=== PATIENT | female | born 1965 | race Caucasian/White ===

== ENCOUNTER 2019-11-16 19:14 | Emergency (ER) | payer OTHER, SELFPAY ==
--- NOTE | ~2019-11-16 | XR_ITS ---
EXAMINATION: XR ankle LT min 3V DATE: 11/16/2019 19:45 INDICATION: Left ankle pain TECHNIQUE: Anteroposterior, lateral, mortise, and additional oblique view of the ankle were obtained. COMPARISON: 11/10/2007 FINDINGS: There is no fracture, dislocation, or subluxation. The bones, soft tissues, and joint space s are normal. IMPRESSION: 1. No acute osseous abnormality. Reviewed, dictated and finalized at location A.
[2019-11-16 19:32] VITALS: BP 138/81; PULSE 92; RESP 18; TEMP 37; O2SAT 100
--- NOTE | 2019-11-16 19:51 | ED.LOWEXIN ---
HPI - Extremity Injury (Lower) General Chief Complaint: Extremity Injury, Lower Stated Complaint: Ankle injury Time Seen by Provider: 11/16/19 19:36 Source: patient and RN notes reviewed Mode of arrival: ambulatory Limitations: no limitations History of Present Illness HPI Narrative: Patient presents today complaining of left ankle pain. She was using her left foot to take a hole with a shovel. The foot slipped off the shovel and into a hole around 1430 this afternoon. She complains of lateral and posterior ankle pain. Denies numbness or tingling in the leg or foot. Currently rates her pain 7/10 and describes it as sharp. She has been using ice and Tylenol with mild relief. Pain increases with weightbearing or movement. MD complaint: ankle injury Related Data Allergies Allergy/AdvReac Type Severity Reaction Status Date / Time No Known Allergies Allergy Verified 11/16/19 19:37 Review of Systems Review of Systems: Narrative: CONSTITUTIONAL: Denies body aches, fever, chills, or sweats. EYES: Denies visual changes, redness, or discharge. ENT: Denies rhinorrhea, congestion, sore throat, or otalgia. CARDIOVASCULAR: Denies chest pain, palpitations, or edema. RESPIRATORY: Denies cough or dyspnea. GASTROINTESTINAL: Denies abdominal pain, nausea, vomiting, or diarrhea. GENITOURINARY: Denies dysuria or hematuria. SKIN: Denies rash, itching, or wounds. MUSCULOSKELETAL: Denies back pain,or myalgia. + Left ankle injury NEUROLOGIC: Denies headache, numbness, tingling, or weakness. PSYCH: Denies depression or anxiety. PMFSH Surgical History Surgical History Hx of cataract surgery Hx of cholecystectomy Hx of tonsillectomy Social History Social History Smoking status: Light tobacco smoker Second hand tobacco smoke exposure: No Alcohol intake: never Comments At time of signature, I have reviewed and agree with nursing past medical, surgical, social and family history unless otherwise noted. Please see nursing chart for further information. There is no relevant family history pertinent to the presenting complaint Exam Narrative: Exam Narrative: GENERAL: Well-appearing, well-nourished, and in no acute distress. HEAD: Normocephalic, atraumatic. EYES: EOMI. No redness or drainage. ENT: Mucous membranes pink and moist. NECK: Normal AROM. CHEST: No respiratory distress. EXTREMITIES: Left ankle: No bony tenderness of the lateral or medial malleolus. Mild soft tissue swelling and tenderness to the soft tissue laterally. No tenderness to the Achilles tendon. No tenderness to the foot. No ecchymosis or erythema noted. Distal sensation intact. Capillary refill normal. Pedal pulse normal. Decreased range of motion of the ankle due to pain. SKIN: Warm, dry, no rash. Capillary refill normal. Normal skin turgor. NEURO: No focal deficits. Alert and oriented x3. Gait steady. PSYCH: Normal affect. No signs of depression or anxiety. Course Vital Signs Vital signs: Vital Signs Temperature 98.6 F 11/16/19 19:32 Pulse Rate 92 11/16/19 19:32 Respiratory Rate 18 11/16/19 19:32 Blood Pressure 138/81 11/16/19 19:32 Pulse Oximetry 100 11/16/19 19:32 Temperature 98.6 F 11/16/19 19:32 Pulse Rate 92 11/16/19 19:32 Respiratory Rate 18 11/16/19 19:32 Blood Pressure 138/81 11/16/19 19:32 Pulse Oximetry 100 11/16/19 19:32 Reviewed. Pt has been instructed to follow up with her PCP regarding her elevated blood pressure today. MDM - Extremity Injury (Lower) Differential Diagnosis Differential diagnosis: Likely ankle sprain and strain and ankle fracture Imaging Data Radiologist's impression: ITS Impressions Ankle X-Ray 11/16/19 19:48 IMPRESSION: 1. No acute osseous abnormality. Critical Care Time Critical Care Time Critical Care Time: No Discharge Plan
== END 2019-11-16 20:00 | disposition home or self-care (01) ==
PROVIDERS: Emergency Provider Nurse Practitioner; PCP Family Medicine
DX: S93.402A Sprain of unspecified ligament of left ankle, initial encounter (principal); X58.XXXA Exposure to other specified factors, initial encounter; F17.200 Nicotine dependence, unspecified, uncomplicated
CPT/HCPCS: 73610; 99213; G0463

== ENCOUNTER 2021-01-06 09:08 | Emergency (ER) | payer OTHER, SELFPAY ==
[2021-01-06 09:26] VITALS: BP 129/80; PULSE 65; RESP 20; TEMP 36.4; O2SAT 99
--- NOTE | 2021-01-06 10:05 | ED.URI ---
HPI - URI/Sore Throat General Chief Complaint: Upper Respiratory Infection Stated Complaint: sinus/alergy Source: patient Mode of arrival: ambulatory Limitations: no limitations History of Present Illness HPI Narrative: Patient is a 55-year-old female who presents complaining of sinus pain and pressure. She reports increased pain and pressure over the past 5 days, reports mild symptoms for the past 9 to 10 days. She reports a history of sinus infections. She reports that she sees ENT and has an appointment next week scheduled. She reports she takes Zyrtec and Flonase daily. She reports also taking Sudafed without relief. Patient had negative Covid test on . She denies fever chills or body aches. Patient is vaccinated for Covid. Related Data Allergies Allergy/AdvReac Type Severity Reaction Status Date / Time No Known Allergies Allergy Verified 01/06/21 09:58 Review of Systems Review of Systems: CONSTITUTIONAL: Denies fever, chills, or sweats. EYES: Denies visual changes, redness, or discharge. ENT: Denies rhinorrhea, reports mild congestion and sinus pressure CARDIOVASCULAR: Denies chest pain, palpitations, or edema. RESPIRATORY: Denies cough or dyspnea. GASTROINTESTINAL: Denies abdominal pain, nausea, vomiting, or diarrhea. GENITOURINARY: Denies dysuria or hematuria. SKIN: Denies rash or itching. MUSCULOSKELETAL: Denies back pain, joint pain, or myalgia. NEUROLOGIC: Denies headache, numbness, dizziness, or weakness. PSYCHIATRIC: Denies anxiety or depression. [facility] Past Medical History Medical History (Updated 01/06/21 @ 10:09 by JESSICA Christy) Hypothyroidism Mild intermittent asthma Thyroid nodule Surgical History Surgical History Hx of cataract surgery Hx of cholecystectomy Hx of tonsillectomy Family History Family History Other Cerebrovascular accident Diabetes mellitus Hypertension Social History Social History Smoking status: Light tobacco smoker Second hand tobacco smoke exposure: No Alcohol intake: never Comments At the time of signature, I have reviewed and agree with nursing past medical, surgical, social, and family history unless otherwise noted. Please see nursing chart for further information. There is no relevant family history pertinent to the presenting complaint. Exam Narrative: GENERAL: Well-appearing, well-nourished, and in no acute distress. HEAD: Normocephalic, atraumatic. EYES: EOMI. No redness or drainage. Conjunctiva are normal. ENT: Mucous membranes pink and moist. Nares congested. No rhinorrhea. TMs normal bilaterally. Throat mild erythema. Uvula midline. Frontal sinus tenderness with palpation NECK: AROM. Supple. No lymphadenopathy. CHEST: No respiratory distress. HEART: Regular rate and rhythm. EXTREMITIES: Normal range of motion. No edema. SKIN: Warm, dry, no rash. NEURO: No focal deficits. Alert and oriented x3. Gait steady. PSYCH: Normal affect. No signs of depression or anxiety. Course Vital Signs Vital signs: Vital Signs Temperature 36.4 C L 01/06/21 09:26 Pulse Rate 65 01/06/21 09:26 Respiratory Rate 20 01/06/21 09:26 Blood Pressure 129/80 01/06/21 09:26 Pulse Oximetry 99 01/06/21 09:26 Temperature 36.4 C L 01/06/21 09:26 Pulse Rate 65 01/06/21 09:26 Respiratory Rate 20 01/06/21 09:26 Blood Pressure 129/80 01/06/21 09:26 Pulse Oximetry 99 01/06/21 09:26 Reviewed MDM - URI/Sore Throat MDM Narrative Medical decision making narrative: Patient had Covid PCR with results returned on which were negative. Patient has acute sinusitis. Patient to be treated with antibiotics at this time. Discussed red flags and when to seek further treatment. Patient agrees with plan of care. Patient is stable for discharge to home w
== END 2021-01-06 10:15 | disposition home or self-care (01) ==
PROVIDERS: Emergency Provider Nurse Practitioner; PCP Family Medicine
DX: J01.11 Acute recurrent frontal sinusitis (principal); E03.9 Hypothyroidism, unspecified; J45.909 Unspecified asthma, uncomplicated; F17.200 Nicotine dependence, unspecified, uncomplicated
CPT/HCPCS: 99211; G0463

== ENCOUNTER 2022-03-28 14:22 | Emergency (ER) | payer OTHER, SELFPAY ==
--- NOTE | 2022-03-28 14:27 | ED.URI ---
HPI - URI/Sore Throat General Chief Complaint: Upper Respiratory Infection Stated Complaint: Cough/Chest Congestion Time Seen by Provider: 03/28/22 14:27 Source: patient and RN notes reviewed History of Present Illness HPI Narrative: Patient is a 56-year-old female who presents to urgent care with complaints of cough, congestion and sinus pressure. Patient did a tele visit yesterday with her primary care doctor and was given a Z-Ben and an inhaler. Patient is also been taking Sudafed and using Flonase. States her symptoms started on Friday. Patient had a negative COVID test. Denies any fevers, nausea, vomiting. Patient is requesting codeine cough medication. No other acute complaints. No acute distress noted. Patient aware of the plan care. Some parts of this dictation were generated by voice recognition software and may contain typographical and/or grammatical inaccuracies. Related Data Allergies Allergy/AdvReac Type Severity Reaction Status Date / Time amoxicillin [From Augmentin] AdvReac yeast Verified 03/28/22 14:39 clavulanic acid AdvReac yeast Verified 03/28/22 14:39 [From Augmentin] Review of Systems Review of Systems: CONSTITUTIONAL: Denies fever, chills, or sweats. EYES: Denies visual changes, redness, or discharge. ENT: reports of sinus congestion, head congestion, postnasal drainage CARDIOVASCULAR: Denies chest pain, palpitations, or edema. RESPIRATORY: Reports a productive cough without dyspnea GASTROINTESTINAL: Denies abdominal pain, nausea, vomiting, or diarrhea. GENITOURINARY: Denies dysuria or hematuria. SKIN: Denies rash or itching. MUSCULOSKELETAL: Denies back pain, joint pain, or myalgia. NEUROLOGIC: Denies headache, numbness, or weakness. All other systems reviewed are negative, except as documented in HPI. [facility] Past Medical History Medical History (Updated 03/28/22 @ 14:50 by JESSICA Holman) Hypothyroidism Mild intermittent asthma Thyroid nodule Surgical History Surgical History Hx of cataract surgery Hx of cholecystectomy Hx of tonsillectomy Family History Family History Other Cerebrovascular accident Diabetes mellitus Hypertension Social History Social History Smoking status: Light tobacco smoker Second hand tobacco smoke exposure: No Alcohol intake: never Comments At the time of my signature, I reviewed and agree with the nursing past medical, surgical, social, and family history. There is no relevant family history pertinent to the patient complaint. Exam Narrative: GENERAL: This is a well-nourished, well-developed patient, in no apparent distress. HEAD: normocephalic, atraumatic. EYES: PERRL. Sclera clear/white. Vision is grossly intact. EARS: External ears normal, auditory canals clear and without drainage, TMs normal without perforation. Hearing grossly intact. NOSE: External nose normal with no obvious nasal discharge. mild bilateral erythema nares with clear to yellow rhinorrhea THROAT: Mucous membranes moist, posterior pharynx clear. moderate postnasal drainage NECK: Neck supple CARDIOVASCULAR: Regular rate and rhythm without murmurs, gallops, or rubs. RESPIRATORY: slight crackles throughout with mild expiratory wheezing SKIN: warm, intact with no suspicious lesions or rash, good texture and turgor. NEURO: awake, alert, and oriented to person, place and time. There were no obvious focal neurologic abnormalities. EXTREMITIES: No clubbing, cyanosis, or edema. Course Course Level of Care: Express Care Visit Vital Signs Vital signs: Vital Signs Temperature 98 F 03/28/22 14:35 Pulse Rate 85 03/28/22 14:35 Respiratory Rate 16 03/28/22 14:35 Blood Pressure 126/78 03/28/22 14:35 Pulse Oximetry 98 03/28/22 14:35 Oxygen Delivery Room Air 03/28/22 1
[2022-03-28 14:35] VITALS: BP 126/78; PULSE 85; RESP 16; TEMP 36.6; O2SAT 98
== END 2022-03-28 14:57 | disposition home or self-care (01) ==
PROVIDERS: Emergency Provider Nurse Practitioner Family
DX: J40 Bronchitis, not specified as acute or chronic (principal); E03.9 Hypothyroidism, unspecified; Z72.0 Tobacco use
CPT/HCPCS: 99213; G0463

== ENCOUNTER 2022-08-31 09:55 | Emergency (ER) | payer OTHER, SELFPAY ==
--- NOTE | ~2022-08-31 | XR_ITS ---
EXAMINATION: XR chest 1V portable DATE: 08/31/2022 11:16 INDICATION: Cough. TECHNIQUE: A single frontal view of the chest was obtained. COMPARISON: Chest 2 views 09/04/2018 FINDINGS: The chest demonstrates clear lungs without pneumonia, pleural effusion, or pneumothorax. Th e heart size is normal. There is a prominent right paracardial fat pad. IMPRESSION: 1. No acute cardiopulmonary disease. Reviewed, dictated and finalized at location A.
[2022-08-31 09:58] VITALS: BP 162/88; PULSE 82; RESP 20; TEMP 37.1; O2SAT 97
[2022-08-31 10:07] VITALS: O2SAT 99
[2022-08-31] MEDS: LEVALBUTEROL NEB 1.25 MG/3 ML INHALATION (10:46)
[2022-08-31] MEDS: IPRATROPIUM BR 0.02% INH SOLN 0.5 MG/2.5 ML VIAL INHALATION (10:46)
[2022-08-31 10:49] VITALS: PULSE 67; RESP 22
--- NOTE | 2022-08-31 11:06 | ED.URI ---
HPI - URI/Sore Throat General Chief Complaint: Upper Respiratory Infection Stated Complaint: URI Time Seen by Provider: 08/31/22 10:03 History of Present Illness HPI Narrative: 56-year-old female here for evaluation of upper respiratory infection x4 days. Reports cough, sinus congestion and fullness, low-grade fevers and generalized malaise. was seen at an urgent care and was placed on Bactrim, prednisone, Tessalon Perles and Mucinex. States that these have improved her symptoms but she is perplexed as to why they have not disappeared. Reports difficulty sleeping due to her congestion. She is previously healthy and denies history of respiratory disease. Related Data Allergies Allergy/AdvReac Type Severity Reaction Status Date / Time amoxicillin [From Augmentin] AdvReac yeast Verified 08/31/22 09:55 clavulanic acid AdvReac yeast Verified 08/31/22 09:55 [From Augmentin] doxycycline AdvReac Nausea Verified 08/31/22 09:55 Review of Systems Review of Systems: Gen.: Denies fevers or chills Eyes: Denies eye pain or visual change ENT: Reports congestion Respiratory: Reports productive cough CV: Denies chest pain or palpitations GI: Denies abdominal pain nausea, emesis or diarrhea denies burning, urgency, frequency or hematuria Musculoskeletal: Denies back pain or muscle pain Neuro: Denies numbness, tingling, weakness or focal weakness Skin: Denies rash Except as documented, all other systems reviewed and negative PMFSH Past Medical History Medical History (Updated 08/31/22 @ 12:01 by Aimee Sellers PA-C) Hypothyroidism Mild intermittent asthma Thyroid nodule Surgical History Surgical History Hx of cataract surgery Hx of cholecystectomy Hx of tonsillectomy Family History Family History Other Cerebrovascular accident Diabetes mellitus Hypertension Social History Social History Smoking status: Light tobacco smoker Second hand tobacco smoke exposure: No Alcohol intake: never Exam Narrative: APPEARANCE: Well appearing, no pain in distress, well-nourished. Head: Normocephalic and atraumatic. EYES: PERRLA/EOMI, conjunctivae clear NOSE: No nasal drainage EARS: External ear normal in appearance THROAT: Oropharynx is clear. Mucous membranes are moist. NECK: Supple. No adenopathy, no masses. RESPIRATORY: Transmitted upper airway noises. Airway patent, respirations nonlabored. Clear to auscultation bilaterally, no rales, rhonchi, wheezing. CARDIOVASCULAR: Regular rate and rhythm without murmurs, rubs, or gallops. ABDOMINAL: Normoactive bowel sounds. Soft, nontender, nondistended. No rebound tenderness or guarding. MUSCULOSKELETAL: Extremities are warm and well-perfused. Moves all extremities well. No edema. NEURO: Normal speech. No focal neurologic deficits. SKIN: Skin is warm and dry. No rashes. PSYCHIATRIC: Normal affect/mood. Course Vital Signs Vital signs: Vital Signs Temperature 98.7 F 08/31/22 09:58 Pulse Rate 82 08/31/22 09:58 Respiratory Rate 20 08/31/22 09:58 Blood Pressure 162/88 H 08/31/22 09:58 Pulse Oximetry 97 08/31/22 09:58 Oxygen Delivery Room Air 08/31/22 09:58 Temperature 98.7 F 08/31/22 09:58 Pulse Rate 89 08/31/22 12:03 Respiratory Rate 18 08/31/22 12:03 Blood Pressure 126/67 08/31/22 12:03 Pulse Oximetry 100 08/31/22 12:03 Oxygen Delivery Room Air 08/31/22 10:07 MDM - URI/Sore Throat MDM Narrative Medical decision making narrative: 56-year-old female here for evaluation of upper respiratory infectious symptoms x5 days. Treated with OTC meds, prednisone and Bactrim with improvement of her symptoms but she is upset that they are not gone entirely, most upset that she is unable to sleep at night due to cough. She is nontoxic in
[2022-08-31 11:52] LABS: Influenza A QL RT-PCR Negative (Negative); Influenza B QL RT-PCR Negative (Negative); RSV RNA, RT-PCR Negative (Negative); SARS-CoV-2 RNA PCR Negative (Negative)
[2022-08-31 12:03] VITALS: BP 126/67; PULSE 89; RESP 18; O2SAT 100
== END 2022-08-31 12:19 | disposition home or self-care (01) ==
PROVIDERS: Emergency Provider Physician Assistant; PCP Physician Assistant
DX: J06.9 Acute upper respiratory infection, unspecified (principal); J45.20 Mild intermittent asthma, uncomplicated; E03.9 Hypothyroidism, unspecified; Z20.822 Contact with and (suspected) exposure to COVID-19; F17.210 Nicotine dependence, cigarettes, uncomplicated
CPT/HCPCS: 71045; 87637; 94640; 99283

== ENCOUNTER 2023-11-13 16:02 | Outpatient (CLI) | payer OTHER, SELFPAY ==
--- NOTE | ~2023-11-13 | MR_ITS ---
MRI of the left ankle Clinical history: Pain Technique: Coronal proton-density and proton-density fat-sat images, axial proton-density and proton- density fat-sat images, and sagittal proton-density and proton-density fat-sat images were acquired. Findings: Syndesmotic ligaments are intact. Anterior and posterior talofibular ligaments, and calcane ofibular ligament are intact. Deltoid ligament is intact. Medial flexor tendons, peroneal tendons, anterior extensor tendons, and Achilles tendon are intact. There is no osteochondral lesion of the talar dome. Bone marrow signals and joint spaces are intact. Small tibiotalar joint effusion present. Plantar fascia is intact. Normal signal preserved in the sinus Tarsi. There is diffuse, prominent sub cutaneous soft tissue edema otherwise throughout the ankle region. Impression: Diffuse subcutaneous soft tissue edema, nonspecific. No mass lesion or focal fluid collection evident . No significant osseous or articular abnormality evident. No ligamentous injury evident. Reviewed, dictated and finalized at [facility]. Impression: Diffuse subcutaneous soft tissue edema, nonspecific. No mass lesion or focal fl uid collection evident. No significant osseous or articular abnormality evident. No ligamentous injury evident.
== END 2023-11-13 16:03 ==
LOC: MICIMG 16:03
PROVIDERS: PCP Physician Assistant; Visit Provider Nurse Practitioner Family
DX: M25.572 Pain in left ankle and joints of left foot (principal)
CPT/HCPCS: 73721

== ENCOUNTER 2023-11-14 11:20 | Outpatient (CLI) | payer OTHER, SELFPAY ==
--- NOTE | ~2023-11-14 | US_ITS ---
EXAMINATION: US venous doppler [facility] DATE: 11/14/2023 12:13 INDICATION: Lower limb pain and swelling TECHNIQUE: Grayscale ultrasound images without and with compression and Doppler ultrasound images of the bilateral lower extremity veins were obtained. COMPARISON: None. FINDINGS: The visualized portions of right common femoral vein, profunda (deep) femoral vein, femoral vein, pop liteal vein, posterior tibial veins, peroneal veins and greater saphenous vein outflow are patent. The visualized portions of left common femoral vein, profunda femoral vein, femoral vein, popliteal v ein, posterior tibial veins, peroneal veins and greater saphenous vein outflow are patent. IMPRESSION: 1. No deep venous thrombosis in either lower limb. Reviewed, dictated and finalized at location A.
== END 2023-11-14 11:21 | disposition home or self-care (01) ==
PROVIDERS: PCP Physician Assistant; Visit Provider Nurse Practitioner Family
DX: M79.89 Other specified soft tissue disorders (principal)
CPT/HCPCS: 93970

== ENCOUNTER 2024-11-02 14:37 | Outpatient (CLI) | payer OTHER, SELFPAY ==
--- NOTE | ~2024-11-02 | XR_ITS ---
3 VIEWS PARANASAL SINUSES Ordering provider: Daan Butler APRN History: . J32.9 - Chronic sinusitis, unspecified . Comparison: None. FINDINGS: BONES: No acute fracture as visualized. PARANASAL SINUSES: Well aerated. No air fluid levels. SOFT TISSUES: Normal. IMPRESSION: NO EVIDENCE OF SINUS DISEASE. CONSIDER FOLLOW UP CT PARANASAL SINUSES IF THERE IS CONTINUED CONCERN. Reviewed, dictated and finalized at location A.
--- OUTSIDE RECORDS SUMMARY | 2024-11-02 14:41 | XMS_ITS | Encounter Summary ---
Author Organization [facility] Address [address] [place] [id number] Care Team Providers Care Engineering Leader Name Role Phone Emmy Mcnair Primary Care Provider + [phone] Adrianne Aragon NP Primary Care Provider + [phone] Encounter Details Date Type Department Care Team (Late st Contact Info) Description 12/05/2021 FaceTags Message Enc [facility] Family & Internal Medicine [facility] [id number] [place] [phone] Emmy Mcnair [place] [id number] [place] [id number] [place] Social History Tobacco Use Types Packs/Day Years Used Date Smoking Tobacco: Every Day Cigarettes 0.3 30 Smokeless Tobacco: Never Comments:Mixed feelings Alcohol Use Standard Drinks/Week Comments Yes 0 (1 standard drink = 0.6 oz pur e alcohol) Social occaisons PHQ-2 Answer Date Recorded PHQ-2 Score - If the patient scores above 3, please move on to questions 3-9 0 12/04/2021 Comments No Sex and Gender Information Value Date Recorded Sex Assigned at Not on file Legal Sex Female 8:26 PM CDT Gender Identity Female 06/04/2021 11:08 AM SPEECH THERAPIST EARLY INTERVENTION Sexual Orientation Straight 06/04/2021 11 :08 AM SPEECH THERAPIST EARLY INTERVENTION COVID-19 Exposure Response Date Recorded In the last 10 days, have yo u been in contact with someone who was confirmed or suspected to have Coronavirus/COVID-19? No / Unsure 12/04/2021 7:45 AM CDT documented as of this encounter Plan of Treatment Not on file documented as of this encounter Visit Diagnoses Not on filedocumented in this encounter Additional Health Concerns Assessment Noted Time PHQ-9 Depression Total Score: 0 06/06/19 22 7:57 AM SPEECH THERAPIST EARLY INTERVENTION documented as of this encounter Care Teams Engineering Leader Relationship Specialty [place] [address] [place] [address] PCP - General PHYSICIAN [employer] WORK[employer] 04/26/21 04/17/23 [place] [phone] [address] [id number] [place] [address] PCP - General Nurse Practitioner Family 04/18/2311/26 documented as of this encounter
--- OUTSIDE RECORDS SUMMARY | 2024-11-02 14:41 | XMS_ITS | Clinical Summary ---
Author Organization [facility] Address [address] [place] [address] Care Team Providers Care Window Treatment Installer Name Role Phone Unavailable Primary Care Provider Unavailabl e Allergies Active Allergy Reactions Criticality Noted Date Comments Amoxicillin-Pot Clavulanate Other (see comment) Low 02/14/2019 Pt states it gives her a yeast infection. Medications diclofenac sodium 1 % gel APPLY TO THE AFFECTED AREA THREE TIMES DAILY 1 Active Cyanocobalamin (B-12) 2000 MCG Tab Active Cholecalciferol (VITAMIN D3) 50 MCG (1999 UT) Tab Active famotidine (PEPCID) 20 MG tabletIndications:G astric reflux,H/O hiatal hernia Take 1 tablet (20 mg total) by mouth 2 (two) times daily with meals. 60 tablet 2 3 Active pantoprazole EC (PROTONIX) 40 MG tabletIndications:G astric reflux Take 1 tablet (40 mg total) by mouth every morning. 90 tablet 3 3 Active hydroCHLOROthiazide (MICROZIDE) 12.5 MG capsuleIndications: Primary hypertension Take 1 capsule (12.5 mg total) by mouth daily. 90 capsule 2 3 Active Levothyroxine Sodium (TIROSINT-TJ) 100 MCG/ML SolutionIndications :Acquired hypothyroidism Take 100 mcg by mouth every morning before breakfast. 90 mL 1 4 Active azelastine (ASTELIN) 0.1 % nasal sprayIndications:Se asonal allergies 2 sprays by Nasal route 2 (two) times daily. 30 mL 4 Active ciprofloxacin (CIPRO) 500 MG tablet Take 1 tablet (500 mg total) by mouth 2 (two) times daily. 4 Active azithromycin (ZITHROMAX Z-ANDRIY) 250 MG tabletIndications:B ronchitis Take 2 tablets by mouth on day one then 1 daily for four days. 6 tablet 4 Active benzonatate (TESSALON PERLES) 100 MG capsuleIndications: Bronchitis Take 1 capsule (100 mg total) by mouth 3 (three) times daily as needed. 40 capsule 4 Active Active Problems Problem Noted Date Diagnosed Date Seasonal allergies 07/17/2023 COVID-19 04/25/2023 Gastric reflux 04/23/2023 Hiatal hernia 03/16/2023 Acquired hypothyroidism 12/06/2021 Obesity (BMI 30-39.9) 12/06/2021 Resolved Problems Problem Noted Date Diagnosed Date Resolved Date Abnormal findings on diagnos tic imaging of breast 11/09/2014 07/08/2023 Immunizations Immunization Administration Dates Next Due Fluzone 6 Months+ Quad (0.5 mL Prefilled Syringe) 04/23/2023,02/07/2022,04/26/2021 PFIZER COVID-19 (ORIGINAL FO RMULATION, PURPLE CAP) mRNA, LNP-S, PF, 30 MCG/0.3 ML DOSE 04/26/2021,08/13/2020,07/23/2020 PFIZER COVID-19 BIVALENT (12 +) mRNA, LNP-S, PF, 30 MCG/0.3 ML DOSE 02/07/2022 Family History Medical History Relation Comments Depression Daughter Mental Health Daughter Anxiety/Bipolar Diabetes Father Hypertension Father Diabetes Mother Hypertension Mother Stroke Mother Relation Status Comments Daughter Father Alive Mother Social History Tobacco Use Types Packs/Day Years Used Date Smoking Tobacco: Every Day Cigarettes 0.3 30 Passive Smoke Exposure: Current Smokeless Tobacco: Never Tobacco Cessation:Ready to Q uit: No; Counseling Given: Yes Comments:Mixed feelings Alcohol Use Standard Drinks/Week Comments Yes 0 (1 standard drink = 0.6 oz pur e alcohol) Social occaisons PHQ-2 Answer Date Recorded Patient Health Questionnaire-2 Score 0 07/15/2023 Comments No Sex and Gender Information Value Date Recorded Sex Assigned at Not on file Legal Sex Female 8:26 PM CDT Gender Identity Female 06/04/2021 11:08 AM FOREIGN EXCHANGE DEALER Sexual Orientation Straight 06/04/2021 11 :08 AM FOREIGN EXCHANGE DEALER Last Filed Vital Signs Vital Sign Reading Time Taken Comments Blood Pressure 133/78 07/15/2023 9:10 AM CDT Pulse 77 07/15/2023 9:04 AM CDT Temperature 37.3 C (99.1 F) 07/15/2023 9:04 AM CDT Respiratory Rate 20 07/15/2023 9:04 AM CDT Oxygen Saturation 97% 07/15/2023 9:04 AM CDT Inhaled Oxygen Concentration - - Weight 86.6 kg (191 lb) 07/15/2023 9:04 AM CDT Height 157.5 cm (5' 2) 07/15/2023 9:04 AM CDT Body Mass Index 34.93 07/15/2023 9:04 AM CDT Plan of Treatment Health Maintenance Due Date Last Done Comments DTaP, Tdap and Td Vaccines (1 - Tdap) 10/21/1983 Pneumococcal Vaccine: 50+ Years (1 of 2 - PCV) 10/21/1983 Zoster Vaccines (1 of 2) 2014 Annual Physical 04/26/2022 04/26/2021 COVID-19 Vaccine ( season) 2023 02/07/2022, 04/26/2021, 08/13/2020, Additional history exists Cervical Cancer Screening Pap Smear (Age 30 to 64) Every 3 Years 04/26/2024 04/26/2021 PHQ-2 (Physician [place]) 04/28/2024 07/15/2023 Colorectal Cancer Screening FIT-DNA (3 Years) 05/14/2024 05/14/2021, 05/14/2021 Mammogram Screening 09/13/2024 09/13/2022 Cervical Cancer Screening Pap with HPV Testing (Age 30 to 64) Every 5 Years 04/26/2026 04/26/2021 Cervical Cancer Screening with HPV 04/26/2026 RSV Immunization or 60+ Years (1 - 1-dose 75+ series) 10/21/2039 Hepatitis C Completed 04/23/2023 Meningococcal B Vaccine Aged Out No l onger eligible based on patient's age to complete this topic Meningococcal Vaccine Aged Out No samia lisseth eligible based on patient's age to complete this topic RSV Immunizations Under 20 Months Aged Out No longer eligible based on patient's age to complete this topic Procedures Procedure Name Priority Date/Time Associated Diagnosis Comments HEPATITIS C ANTIBODY W/RFX TO HCV RNA Routine 04/23/2023 11:57 AM FOREIGN EXCHANGE DEALER Encounter for hepatitis C screening test for low risk patient MAMMOGRAM GENERIC (SCAN ORDER) Routine 09/13/2022 COLOGUARD (EXACT SCIENCE) Routine 05/14/2021 9:15 AM FOREIGN EXCHANGE DEALER Colon cancer screening HUMAN PAPILLOMAVIRUS, HIGH-RISK TYPES Routine 04/26/2021 12:30 PM FOREIGN EXCHANGE DEALER CYTOPATH CERV/VAG THIN LAYER Routine 04/26/2021 11:09 AM FOREIGN EXCHANGE DEALER from Last 3 Months or Most Recently Relevant to Health Maintenance Results * HEPATITIS C ANTIBODY ([facility] ONLY) (04/23/2023 11:57 AM FOREIGN EXCHANGE DEALER) HEPATITIS C AB NON-REACT NEELIMA NON-REACT NEELIMA [facility] Comment: HCV antibody was non-reactive. There is no laboratory evidence of HCV infection. In most cases, no further action is required. However, if recent HCV exposure is suspected, a test for HCV RNA (test code 03128) is suggested. For additional information please refer to http://education.Ajaline/faq/DSK35r5 (This link is being provided for informational/ educational purposes only.) 04/23/2023 11:5 7 AM FOREIGN EXCHANGE DEALER 04/24/2023 12:20 PM FOREIGN EXCHANGE DEALER Narrative Resulting Agency Comment Performing Organization Information: Site ID: [id number] Name: [id number] Address: [address] [place] [address] Director: Derrick Bojorquez MD us Adrianne Aragon NP LABORATORY Final Result [facility] [place] [facility] [facility] [address] [place] [address], [place] * MAMMOGRAM (09/13/2022) Anatomical Region Laterality Modality Other us [facility] Scanned SCANNING Final Resu lt * COLOGUARD (EXACT SCIENCE) (05/14/2021 9:15 AM FOREIGN EXCHANGE DEALER) COLOGUARD RESULT Negative Negative [facility] (CLIA #:[id number]) Comment: NEGATIVE TEST RESULT. A negative Cologuard result indicates a low likelihood that a colorectal cancer (CRC) or advanced adenoma (adenomatous polyps with more advanced pre-malignant features) is present. The chance that a person with a negative Cologuard test has a colorectal cancer is less than 1 in 1500 (negative predictive value >99.9%) or has an advanced adenoma is less than 5.3% (negative predictive value 94.7%). These data are based on a prospective cross-sectional study of 10,000 individuals at average risk for colorectal cancer who were screened with both Cologuard and colonoscopy. (Lily Barahona et al, N Engl J Med 2014;370(14):4850-0469) The normal value (reference range) for this assay is negative. COLOGUARD RE-SCREENING RECOMMENDATION: Periodic colorectal cancer screening is an important part of preventive healthcare for asymptomatic individuals at average risk for colorectal cancer. Following a negative Cologuard result, the [place] [employer] Society and U.S. Multi-Society Task Force screening guidelines recommend a Cologuard re-screening interval of 3 years. References: [place] [employer] Guideline for Colorectal Cancer Screening: https://www.cancer.org/cancer/mtnrz-fqrlnz-dolnnh/ugesaneia-xuicrdwoc-abbnywu/ac s-rec ommendations.html.; Dell PEACE, Luis Felipe HOLDER, Mary Kay DavalosK, Colorectal Cancer Screening: Recommendations for Physicians and Patients from the U.S. Multi-Society Task Force on Colorectal Cancer Screening , Am J Gastroenterology 2017; 112:8521-5830. TEST DESCRIPTION: Composite algorithmic analysis of stool DNA-biomarkers with hemoglobin immunoassay. Quantitative values of individual biomarkers are not reportable and are not associated with individual biomarker result reference ranges. Cologuard is intended for colorectal cancer screening of adults of either sex, 45 years or older, who are at average-risk for colorectal cancer (CRC). Cologuard has been approved for use by the U.S. FDA. The performance of Cologuard was established in a cross sectional study of average-risk adults aged 50-84. Cologuard performance in patients ages 45 to 49 years was estimated by sub-group analysis of near-age groups. Colonoscopies performed for a positive result may find as the most clinically significant lesion: colorectal cancer [4.0%], advanced adenoma (including sessile serrated polyps greater than or equal to 1cm diameter) [20%] or non- advanced adenoma [31%]; or no colorectal neoplasia [45%]. These estimates are derived from a prospective cross-sectional screening study of 10,000 individuals at average risk for colorectal cancer who were screened with both Cologuard and colonoscopy. (Lily Barahona et al, N Engl J Med 2014;370(14):4449-0870.) Cologuard may produce a false negative or false positive result (no colorectal cancer or precancerous polyp present at colonoscopy follow up). A negative Cologuard test result does not guarantee the absence of CRC or advanced adenoma (pre-cancer). The current Cologuard screening interval is every 3 years. ([place] [employer] Society and U.S. Multi-Society Task Force). Cologuard performance data in a 10,000 patient pivotal study using colonoscopy as the reference method can be accessed at the following location: www.YesVideo/results. Additional description of the Cologuard test process, warnings and precautions can be found at www.cologuard.com. STOOL STOOL SPECIMEN / Unknown 05/14/2021 9:15 AM FOREIGN EXCHANGE DEALER 05/15/2021 12:21 PM FOREIGN EXCHANGE DEALER us Emmy CHEN BODY FLUIDS AND STOOLS ORDER ALBER Final Result [facility] ([facility]) [address] [place] [address], [place] [employer] (CLIA #:[id number]) [address] [place] [address] * HUMAN PAPILLOMAVIRUS, HIGH-RISK TYPES (04/26/2021 12:30 PM FOREIGN EXCHANGE DEALER) SPEC DESCRIPTION CERVICAL/END OCERVICAL 04/30/2021 12:37 PM FOREIGN EXCHANGE DEALER [facility] HPV DNA HIGH RISK NEGATIVE NEGATIVE 04/30/2021 5:19 PM FOREIGN EXCHANGE DEALER [facility] Comment:SEE CYTOLOGY REPORT 04/26/2021 12:3 0 PM FOREIGN EXCHANGE DEALER us Emmy CHEN PATHOLOGY/CYTOLOGY ORDERABLE S Final Result [facility] [address] [place] [address], * Cytopath Cerv/Vag Thin Layer (04/26/2021 11:09 AM FOREIGN EXCHANGE DEALER) THIN PREP PAP [facility] [address] [place] [address] Department of Pathology Pathology Report CERVICAL/VAGINAL PAP SMEAR REPORT Name: CHERELLE ANTUNEZ Age: 6 1965 (Age: 55) Location: [facility] Sex: F Collected Date: 04/26/2021 [facility] #: [id number] Date Received: 04/30/2021 Date Reported: 05/01/2021 Provider: EMMY CHEN INTERPRETATION CERVICAL/ENDOCERVI JENNIFER: SATISFACTORY FOR EVALUATION. ENDOCERVICAL/TRANS FORMATION ZONE COMPONENT PRESENT. NEGATIVE FOR INTRAEPITHELIAL LESION OR MALIGNANCY. NEGATIVE FOR HIGH RISK HPV. The FDA approved Aptima HPV assay is an in vitro nucleic acid amplification test for the qualitative detection of E6/E7 viral messenger RNA (mRNA) from 14 high-risk types of human papillomavirus (HPV) in cervical specimens. The high-risk HPV types detected by the assay include: 16,18,31,33,35,39, 45,51,52,56,58,59, 66, and 68. Electronically Signed Out By HERMILO Sandhu (ASCP) CLINICAL HISTORY Z12.4 SCREENING CANCER HISTIRY - NO HIGH RISK - NO ThinPrep Pap Test with HR HPV testing in patient > 30 years requested. Date of Last Menstrual Period: YEARS Menstrual Status: Regular SPECIMEN SUBMITTED CERVICAL/ENDOCERVI JENNIFER Specimen Received:1 Thin Prep Vial, Image Assisted Pap (SMD) Please note: The Pap smear is not a diagnostic test. It is a screening test. Negative results on combined screening (Pap test and HPV-DNA) have a high negative predictive value (99.1-100 percent) for cervical cancer. The pap test is not effective in detecting cervical adenocarcinoma. [facility] 04/26/2021 11:0 9 AM FOREIGN EXCHANGE DEALER 04/30/2021 11:09 AM FOREIGN EXCHANGE DEALER Comment:CERVICAL/ENDOCERVICA L us Emmy CHEN PATHOLOGY/CYTOLOGY ORDERABLE S Final Result [facility] [address] [place] [address], from Last 3 Months or Most Recently Relevant to Health Maintenance Insurance [employer]
--- OUTSIDE RECORDS SUMMARY | 2024-11-02 14:41 | XMS_ITS | Encounter Summary ---
Author Organization [facility] Address [address] [place] [address] Care Team Providers Care High School Chemistry Teacher Name Role Phone Adrianne Aragon NP Primary Care Provider [phone] Encounter Details Date Type Department Care Team (Late st Contact Info) Description 04/25/2023 ZAPITANOhart Message Enc [facility] Medical Group Family & Internal Medicine [address] [address] [place] [id number] [place] [address] Local Eye Site [address] [place], [place] [id number] Tsh Social History Tobacco Use Types Packs/Day Years Used Date Smoking Tobacco: Every Day Cigarettes 0.3 30 Smokeless Tobacco: Never Comments:Mixed feelings Alcohol Use Standard Drinks/Week Comments Yes 0 (1 standard drink = 0.6 oz pur e alcohol) Social occaisons PHQ-2 Answer Date Recorded Patient Health Questionnaire-2 Score 0 09/02/2022 Comments No Sex and Gender Information Value Date Recorded Sex Assigned at Not on file Legal Sex Female 8:26 PM CDT Gender Identity Female 06/04/2021 11:08 AM SNUFF GRINDER Sexual Orientation Straight 06/04/2021 11 :08 AM SNUFF GRINDER documented as of this encounter Plan of Treatment Not on file documented as of this encounter Visit Diagnoses Not on filedocumented in this encounter Additional Health Concerns Assessment Noted Time PHQ-9 Depression Total Score: 0 09/03/19 23 9:25 AM CDT documented as of this encounter Care Teams High School Chemistry Teacher Relationship Specialty [place] [address] [facility] Local Eye Site [address] [place] [address] [place] [address] PCP - General Nurse Practitioner Family 04/18/2311/26 documented as of this encounter
--- OUTSIDE RECORDS SUMMARY | 2024-11-02 14:41 | XMS_ITS | Encounter Summary ---
Author Organization [facility] Address [address] [place] [address] Care Team Providers Care Corrections Lieutenant Name Role Phone Emmy Mcnair Primary Care Provider + [phone] Adrianne Aragon NP Primary Care Provider + [phone] Encounter Details Date Type Department Care Team (Late st Contact Info) Description 02/04/2023 PHARMAJET Message Enc [facility] Medical Group Family & Internal Medicine [facility] [id number] [place] [address] [place] [address] [place] [address] Visit Social History Tobacco Use Types Packs/Day Years [...] CDT Gender Identity Female 06/04/2021 11:08 AM OBEDIENCE TRAINER Sexual Orientation Straight 06/04/2021 11 :08 AM OBEDIENCE TRAINER documented as of this encounter Plan of Treatment Not on file documented as of this encounter Visit Diagnoses Not on filedocumented in this encounter Additional Health Concerns Assessment Noted Time PHQ-9 Depression Total Score: 0 09/03/19 23 9:25 AM CDT documented as of this encounter Care Teams Corrections Lieutenant Relationship Specialty [place] [address] [place] [address] PCP - General PHYSICIAN RAIL SPLITTER 04/26/21 04/17/23 [place] [address] [address] [place] [address] PCP - General Nurse Practitioner Family 04/18/2311/26 documented as of this encounter
--- OUTSIDE RECORDS SUMMARY | 2024-11-02 14:41 | XMS_ITS | Encounter Summary ---
Author Organization [facility] Address [address] [place] [address] Care Team Providers Care Artist Color Separation Name Role Phone Emmy Mcnair Primary Care Provider + [phone] Adrianne Aragon NP Primary Care Provider + [phone] Encounter Details Date Type Department Care Team (Late st Contact Info) Description 09/06/2022 Odd Geology Message Enc [facility] Medical Group Family & Internal Medicine [facility] [address] [place] [address] [place] [address] [place] [address] Cough/Meds Social History Tobacco Use Types Packs/Day Years [...] CDT Gender Identity Female 06/04/2021 11:08 AM OFFICE CLERK ASSISTANT Sexual Orientation Straight 06/04/2021 11 :08 AM OFFICE CLERK ASSISTANT COVID-19 Exposure Response Date Recorded In the last 10 days, have yo u been in contact with someone who was confirmed or suspected to have Coronavirus/COVID-19? No / Unsure 09/02/2022 9:12 AM CDT documented as of this encounter Plan of Treatment Not on file documented as of this encounter Visit Diagnoses Not on filedocumented in this encounter Additional Health Concerns Assessment Noted Time PHQ-9 Depression Total Score: 0 09/03/19 9:25 AM CDT documented as of this encounter Care Teams Artist Color Separation Relationship Specialty [place] [address] [place] [address] PCP - General PHYSICIAN 3D ANIMATOR 04/26/21 04/17/23 [place] [address] [address] [address] PCP - General Nurse Practitioner Family 04/18/2311/26 documented as of this encounter
--- OUTSIDE RECORDS SUMMARY | 2024-11-02 14:41 | XMS_ITS | Encounter Summary ---
Author Organization [facility] Address [address] [place] [address] Care Team Providers Care Geophysical Operator Name Role Phone Emmy Mcnair Primary Care Provider + [phone] Adrianne Aragon NP Primary Care Provider + [phone] Encounter Details Date Type Department Care Team (Late st Contact Info) Description 02/22/2022 Wonolo Message [facility] Medical Group Family & Internal Medicine [address] [address] Piyush, [facility] Provider Due for routine follow up appt Social History Tobacco Use Types Packs/Day Years [...] CDT Gender Identity Female 06/04/2021 11:08 AM SHEET METAL OPERATOR Sexual Orientation Straight 06/04/2021 11 :08 AM SHEET METAL OPERATOR COVID-19 Exposure Response Date Recorded In the last 10 days, have yo u been in contact with someone who was confirmed or suspected to have Coronavirus/COVID-19? No / Unsure 02/07/2022 3:34 PM CDT documented as of this encounter Plan of Treatment Not on file documented as of this encounter Visit Diagnoses Not on filedocumented in this encounter Additional Health Concerns Assessment Noted Time PHQ-9 Depression Total Score: 0 06/06/19 22 7:57 AM SHEET METAL OPERATOR documented as of this encounter Care Teams Geophysical Operator Relationship Specialty [place] [address] [place] [address] PCP - General PHYSICIAN 3RD PRESSMAN 04/26/21 04/17/23 [place] [address] [address] [place] [address] PCP - General Nurse Practitioner Family 04/18/2311/26 documented as of this encounter
--- OUTSIDE RECORDS SUMMARY | 2024-11-02 14:41 | XMS_ITS | Clinical Summary ---
Author Organization [facility] [address] [facility] lto Address [address] [place] [address] Care Team Providers Care Warehouse Engineer Name Role Phone Emmy Mcnair Unavailable Emmy Mcnair Primary Care Provider Allergies Active Allergy Reactions Criticality Noted Date Comments Amoxicillin-Pot Clavulanate Other (See comments) Low 02/14/2019 Pt states it gives her a yeast infection. Medications levothyroxine (SYNTHROID) 75 mcg tablet TK 1 T PO QD 2 9 Active hydroCHLOROthiaz puma (MICROZIDE) 12.5 mg capsule TK 1 C PO QD 0 9 Active raNITIdine (ZANTAC) 150 mg tablet TK 1 T PO BID 0 9 Active fluconazole (DIFLUCAN) 150 mg tabletIndication s:Acute recurrent pansinusitis Take 1 tablet (150 mg total) by mouth as directed Take one tab now. Repeat in 7 days if symptoms persist. 2 tablet 9 Active Additional Information Patient not taking.Reported on 04/01/[address] (PROTONIX) 40 mg EC tablet Take 1 tablet (40 mg total) by mouth every morning 1 Active diclofenac sodium (VOLTAREN) 1 % gel APPLY TO THE AFFECTED AREA THREE TIMES DAILY 1 Active cyanocobalamin (Vitamin B-12) 2,000 mcg tablet Take by mouth Active cholecalciferol (VITAMIN D-3) 2000 unit tablet Take by mouth Active albuterol HFA (PROVENTIL HFA,VENTOLIN HFA,PROAIR HFA) 90 mcg/actuation inhaler 3 Active cetirizine 10 mg capsule Take by mouth Active methylPREDNISolo ne (Medrol, Ben,) 4 mg DosepackIndicati ons:Bronchitis follow package directions 1 packet 3 Active Active Problems Problem Noted Date Diagnosed Date Abnormal findings on diagnostic imaging of breas t 11/09/2014 Surgical History Surgery Date Site/Laterality Comments [place] CHOLECYSTECTOMY Cholecystectomy - (Added by TW Conv) CATARACT EXTRACTION Cataract Surgery - (Added by TW Conv) [place] TONSILLECTOMY PRIMARY/SECONDARY <AGE 12 Tonsillectomy - (Added by Conv) BREAST BIOPSY 11/10/2014 Right Medical History Medical History Date Comments 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 Reggie Gibbs (Added by Conv) Family History Medical History Relation Name Comments Diabetes Father Hypertension Father Diabetes Mother Hypertension Mother Relation Name Status Comments Father Mother Social History Tobacco Use Types Packs/Day Years Used Date Smoking Tobacco: Every Day Cigarettes Smokeless Tobacco: Never Tobacco Cessation:Ready to Q uit: Not Asked; Counseling Given: Not Answered Comments No Sex and Gender Information Value Date Recorded Sex Assigned at Not on file Legal Sex Female 2:41 AM THERMOPLASTIC TECHNICIAN Gender Identity Not on file Sexual Orientation Not on file Obstetrics History Para Term AB IAB SAB Ectopic Multiple Livin g Live Births 2 2 2 Date Outcome GA Total Labor Labor/2nd/3rd Weight Sex Type Anes PTL Maria R A1 A5 Name Clin Term Term Last Filed Vital Signs Vital Sign Reading Time Taken Comments Blood Pressure 114/80 08/29/2022 11:19 AM CDT Pulse 102 08/29/2022 11:19 AM CDT Temperature 36.9 C (98.4 F) 08/29/2022 11:19 AM CDT Respiratory Rate 24 08/29/2022 11:19 AM CDT Oxygen Saturation 97% 08/29/2022 11:19 AM CDT Inhaled Oxygen Concentration - - Weight 84.4 kg (186 lb) 08/29/2022 11:19 AM CDT Height 157.5 cm (5' 2) 08/29/2022 11:19 AM CDT Body Mass Index 34.02 08/29/2022 11:19 AM CDT Plan of Treatment Health Maintenance Due Date Last Done Comments Colon Cancer Screening-Colonoscopy 1965 Depression Screening 1965 Hepatitis C Screening 1964 DTaP/Tdap/Td Vaccine (1 - Tdap) 10/21/1975 Hepatitis B Screening 1982 Regular Well Visit/Exam 18-64 1982 Pneumococcal vaccine <65 (1 of 2 - PCV) 10/21/1983 Zoster Vaccine (1 of 2) 2014 Cervical Cancer Screening 04/26/2022 04/26/2021 Covid-19 Vaccine (4 - 2023-2 5 season) 2023 04/26/2021, 08/13/2020, 07/23/2020 Influenza Vaccine (#1) 2024 , 02/07/2022, 04/26/2021 Breast Cancer Screening-Mammogram 01/29/2025 01/30/2024, 09/13/2022, 07/16/2021, Additional history exists Procedures Procedure Name Priority Date/Time Associated Diagnosis Comments SCREENING MAMMOGRAM BILATERAL W KARLO Schedule Routine, Read Routine (OP Routine) 01/30/2024 3:21 PM CDT Screening mammogram, encounter for from Last 3 Months or Most Recently Relevant to Health Maintenance Results * Screening Mammogram Bilateral W Karlo (01/30/2024 3:21 PM CDT) Anatomical Region Laterality Modality Breast Bilateral Mammography Impressions 01/30/2024 3:40 PM CDT BI-RADS ATLAS category (overall): 2 - Benign There is no mammographic evidence of malignancy. A 1 year screening mammogram is recommended. The patient has been or will be contacted. We recommend annual screening mammography for women at average risk of breast cancer beginning at age 40, based on guidelines of the [place] [employer] (ACR Practice Parameter for the Performance of Screening and Diagnostic Mammography) and [place] [employer]. For women with and elevated risk of breast cancer, please refer to the ACR Practice Parameter for specific screening recommendations. The patient will be entered into a reminder system with a target due date of 1 year for her next screening exam. Narrative 01/30/2024 3:40 PM CDT Screening Mammogram Bilateral W Karlo: 01/30/24 The study was acquired using full field digital technology and interpreted from soft copy. 2D digital mammographic views, as well as 3D digital tomosynthesis were performed in the CC and MLO projections. CLINICAL: Screening mammogram, encounter for. No relevant medical history has been documented for this patient. No known family history of breast cancer. COMPARISONS: 09/13/2022 Diagnostic Mammogram Bilateral W Karlo 09/13/2022 US Breast Right Limited 07/16/2021 Diagnostic Mammogram Bilateral W Karlo 07/16/2021 US Breast Right Limited 01/17/2021 Diagnostic Mammogram Right W Karlo 01/17/2021 US Breast Right Limited 07/14/2020 Diagnostic Mammogram Right W Karlo 07/14/2020 US Breast Right Limited 06/29/2020 Screening Mammogram Bilateral W Karlo 03/03/2019 Screening Mammogram Bilateral W Karlo 03/02/2018 Screening Mammogram Bilateral W Karlo BREAST TISSUE: There are scattered areas of fibroglandular density. FINDINGS: There is a post biopsy clip in the right breast.There are benign calcifications in both breasts.No suspicious masses, suspicious calcifications, or other suspicious findings are seen within either breast. There has been no suspicious change. us Self Screening Mammogram IMG MAMMO PROCEDURES Fi nal Result from Last 3 Months or Most Recently Relevant to Health Maintenance Insurance [facility] [id number] [facility] [id number] Care Teams Warehouse Engineer Relationship Specialty [place] [address] [place] [address] PCP - General Physician Facilities Mechanical Design Engineer 09/12/23 [place] [address] [address] [address] Physician Facilities Mechanical Design Engineer Physician Facilities Mechanical Design Engineer 09/13/22
--- OUTSIDE RECORDS SUMMARY | 2024-11-02 14:41 | XMS_ITS | Encounter Summary ---
Author Organization [facility] Address [address] [place] [address] Care Team Providers Care Public Relations Coordinator Name Role Phone Emmy Mcnair Primary Care Provider + [phone] Adrianne Aragon NP Primary Care Provider + [phone] Encounter Details Date Type Department Care Team (Late st Contact Info) Description 12/14/2021 Minboxt Message Enc [facility] Medical Group Family & Internal Medicine [facility] [phone] [place] [phone] [place] [address] [place] [address] Wegovy Social History Tobacco Use Types Packs/Day Years [...] CDT Gender Identity Female 06/04/2021 11:08 AM PROJECT PRODUCT MANAGER Sexual Orientation Straight 06/04/2021 11 :08 AM PROJECT PRODUCT MANAGER COVID-19 Exposure Response Date Recorded In the [...] Total Score: 0 06/06/19 22 7:57 AM PROJECT PRODUCT MANAGER documented as of this encounter Care Teams Public Relations Coordinator Relationship Specialty [place] [address] [place] [address] PCP - General PHYSICIAN PHOTOGRAMMETRIC STEREO COMPILER 04/26/21 04/17/23 [place] [address] [address] [place] [address] [place] [address] PCP - General Nurse Practitioner Family 04/18/2311/26 documented as of this encounter
--- OUTSIDE RECORDS SUMMARY | 2024-11-02 14:41 | XMS_ITS | Encounter Summary ---
Author Organization [facility] Address [address] [place] [address] Care Team Providers Care Mail Order Clerk Name Role Phone Emmy Mcnair Primary Care Provider + [phone] Adrianne Aragon NP Primary Care Provider + [phone] Encounter Details Date Type Department Care Team (Late st Contact Info) Description 06/02/2021 Lifeshare Technologiest Message Enc [facility] Medical Group Family & Internal Medicine [facility] [phone] [place] [phone] Emmy [place], [place] [phone] [place] [address] Keto cream Social History Tobacco Use Types Packs/Day Years Used Date Smoking Tobacco: Every Day Cigarettes Smokeless Tobacco: Never Comments:Mixed feelings Alcohol Use Standard Drinks/Week Comments Yes 0 (1 standard drink = 0.6 oz pur e alcohol) Social PHQ-2 Answer Date Recorded PHQ-2 Score - If the patient scores above 3, please move on to questions 3-9 0 06/06/2021 Comments No Sex and Gender Information Value Date Recorded Sex Assigned at Not on file Legal Sex Female 8:26 PM CDT Gender Identity Female 06/04/2021 11:08 AM WHITE HAT HACKER Sexual Orientation Straight 06/04/2021 11 :08 AM WHITE HAT HACKER COVID-19 Exposure Response Date Recorded In the last 10 days, have yo u been in contact with someone who was confirmed or suspected to have Coronavirus/COVID-19? No / Unsure 06/04/2021 10:43 AM WHITE HAT HACKER documented as of this encounter Plan of Treatment Not on file documented as of this encounter Visit Diagnoses Not on filedocumented in this encounter Additional Health Concerns Assessment Noted Time PHQ-9 Depression Total Score: 0 04/26/20 8:58 AM WHITE HAT HACKER documented as of this encounter Care Teams Mail Order Clerk Relationship Specialty [place] [address] [place] [address] PCP - General PHYSICIAN FINANCIAL AID COUNSELOR 04/26/21 04/17/23 [place] [address] [address] [address] PCP - General Nurse Practitioner Family 04/18/2311/26 documented as of this encounter
--- OUTSIDE RECORDS SUMMARY | 2024-11-02 14:41 | XMS_ITS | Encounter Summary ---
Author Organization [facility] Address [address] [place] [address] Care Team Providers Care Cardiac Exercise Specialist Name Role Phone Emmy Mcnair Primary Care Provider + [phone] Adrianne Aragon NP Primary Care Provider + [phone] Encounter Details Date Type Department Care Team (Late st Contact Info) Description 09/02/2022 Sammy's great American bart Message Enc [facility] Medical Group Family & Internal Medicine [facility] [phone] [place] [phone] [place] [address] [place] [address] One more thing Social History Tobacco Use Types Packs/Day Years [...] CDT Gender Identity Female 06/04/2021 11:08 AM TEST DESK SUPERVISOR Sexual Orientation Straight 06/04/2021 11 :08 AM TEST DESK SUPERVISOR COVID-19 Exposure Response Date Recorded In the last 10 days, have yo u been in contact with someone who was confirmed or suspected to have Coronavirus/COVID-19? No / Unsure 09/02/2022 9:12 AM CDT documented as of this encounter Functional Status * Over the past 2 weeks, how often have you been bothered by any of the following problems? Question Answer Date of Assessment Author Status Little interest or pleasure in doing things Not at all 09/02/2022 9:25 AM Zulema Edwards LPN Act rosa elena Feeling down, depressed, or hopeless Not at all 09/02/2022 9:25 AM Zulema Edwards LPN Active Patient Health Questionnaire-2 Score 0 09/02/2022 9:25 AM Zulema Edwards L PN Active * Question Answer Date of Assessment Author Status Trouble falling or staying asleep, or sleeping too much Not at all 09/02/2022 9:25 AM Zulema Edwards LPN Active Feeling tired or having little energy Not at all 09/02/2022 9:25 AM Zulema Edwards LPN Active Poor appetite or overeating Not at all 09/02/2022 9:25 AM Zulema Edwards LPN Active Feeling bad about yourself - or that you are a failure or have let yourself or your family down Not at all 09/02/2022 9:25 AM Zulema Edwards LPN Active Trouble concentrating on things, such as reading the newspaper or watching television Not at all 09/02/2022 9:25 AM Zulema Edwards LPN Active Moving or speaking so slowly that other people could have noticed? Or the opposite - being so fidgety or restless that you have been moving around a lot more than usual. Not at all 09/02/2022 9:25 AM Zulema Edwrads LPN Active Thoughts that you would be better off or hurting yourself in some way Not at all 09/02/2022 9:25 AM Zulema Edwards LPN Active Patient Health Questionnaire-9 Score 0 09/02/2022 9:25 AM Zulema Edwards LPN Active * Calculated C-SSRS Risk Score (Lifetime/Recent) Answer Date of Assessment Author Status No Risk Indicated 09/02/2022 9:26 AM CDT Omero Menon LPN Active * If you checked off any problems on this questionnaire so far, Question Answer Date of Assessment Author Status How difficult have these problems made it for you to do your work, take care of things at home, or get along with other people? Not difficult at all 09/02/2022 9:25 AM CDZulema Woodward LPN Active * Bibb Suicide Severity Rating Scale (Screener/Recent Self-Report) Question Answer Date of Assessment Author Status 1. Wish to be (Past 1 Month) No 09/02/2022 9:26 AM CDT Zulema Menon LPN Act rosa elena 2. Non-Specific Active Suicidal Thoughts (Past 1 Month) No 09/02/2022 9:26 AM CDZulema Woodward CERTIFIED ORTHOTIST PRACTICE MANAGER Act rosa elena 6. Suicidal Behavior (Lifetime) No 09/02/2022 9:26 AM CDT Zulema Menon LPN Act rosa elena documented as of this encounter Plan of Treatment Not on file documented as of this encounter Visit Diagnoses Not on filedocumented in this encounter Additional Health Concerns Assessment Noted Time PHQ-9 Depression Total Score: 0 09/03/19 9:25 AM CDT documented as of this encounter Care Teams Cardiac Exercise Specialist Relationship Specialty [place] [address] [place] [address] PCP - General PHYSICIAN MARBLE FINISHER 04/26/21 04/17/23 [place] [address] [address] [address] PCP - General Nurse Practitioner Family 04/18/2311/26 documented as of this encounter
--- OUTSIDE RECORDS SUMMARY | 2024-11-02 14:41 | XMS_ITS | Encounter Summary ---
Author Organization [facility] Address [address] [place] [address] Care Team Providers Care Youth Counselor Name Role Phone Emmy Mcnair Primary Care Provider + [phone] Adrianne Aragon NP Primary Care Provider + [phone] Encounter Details Date Type Department Care Team (Late st Contact Info) Description 09/27/2022 JB Therapeuticst Message Enc [facility] Medical Group Family & Internal Medicine [facility] [address] [place] [address] [place] [address] [place] [address] Levothyroxine Social History Tobacco Use Types Packs/Day Years [...] CDT Gender Identity Female 06/04/2021 11:08 AM COOK HELPER VEGETABLE Sexual Orientation Straight 06/04/2021 11 :08 AM COOK HELPER VEGETABLE COVID-19 Exposure Response Date Recorded In the last 10 days, have yo u been in contact with someone who was confirmed or suspected to have Coronavirus/COVID-19? No / Unsure 09/17/2022 12:54 PM CDT documented as of this encounter Plan of Treatment Not on file documented as of this encounter Visit Diagnoses Not on filedocumented in this encounter Additional Health Concerns Assessment Noted Time PHQ-9 Depression Total Score: 0 09/03/19 9:25 AM CDT documented as of this encounter Care Teams Youth Counselor Relationship Specialty [place] [address] [place] [address] PCP - General PHYSICIAN LEAD SHOP OPERATOR 04/26/21 04/17/23 [place] [address] [address] [address] PCP - General Nurse Practitioner Family 04/18/2311/26 documented as of this encounter
--- OUTSIDE RECORDS SUMMARY | 2024-11-02 14:41 | XMS_ITS | Encounter Summary ---
Author Organization [facility] Address [address] [place] [address] Care Team Providers Care Hand Sander Name Role Phone Emmy Mcnair Primary Care Provider + [phone] Adrianne Aragon NP Primary Care Provider + [phone] Encounter Details Date Type Department Care Team (Late st Contact Info) Description 03/28/2022 [place] Message Enc [facility] Medical Group Family & Internal Medicine [facility] [phone] [place] [phone] Emmy Mcnair, APRIL [id number] [place] [address] Wheezing Social History Tobacco Use Types Packs/Day Years [...] CDT Gender Identity Female 06/04/2021 11:08 AM FINANCE CONSULTANT Sexual Orientation Straight 06/04/2021 11 :08 AM FINANCE CONSULTANT documented as of this encounter Plan of Treatment Not on file documented as of this encounter Visit Diagnoses Not on filedocumented in this encounter Additional Health Concerns Assessment Noted Time PHQ-9 Depression Total Score: 0 06/06/19 22 7:57 AM FINANCE CONSULTANT documented as of this encounter Care Teams Hand Sander Relationship Specialty [place] [address] [place] [address] PCP - General PHYSICIAN CULINARY INTERN 04/26/21 04/17/23 [place] [address] [address] [address] PCP - General Nurse Practitioner Family 04/18/2311/26 documented as of this encounter
--- OUTSIDE RECORDS SUMMARY | 2024-11-02 14:41 | XMS_ITS | Encounter Summary ---
Author Organization [facility] Address [address] [place] [address] Care Team Providers Care Application Development Director Name Role Phone Emmy Mcnair Primary Care Provider + [phone] Adrianne Aragon NP Primary Care Provider + [phone] Encounter Details Date Type Department Care Team (Late st Contact Info) Description 09/17/2022 Superpedestriant Message Enc [facility] Medical Group Family & Internal Medicine [facility] [phone] [place] [phone] [place] [address] [place] [address] Rib Social History Tobacco Use Types Packs/Day Years [...] CDT Gender Identity Female 06/04/2021 11:08 AM INTENSIVE CARE UNIT NURSE Sexual Orientation Straight 06/04/2021 11 :08 AM INTENSIVE CARE UNIT NURSE COVID-19 Exposure Response Date Recorded In the [...] documented as of this encounter Care Teams Application Development Director Relationship Specialty [place] [address] [place] [address] PCP - General PHYSICIAN CHALKER SOLES 04/26/21 04/17/23 [place] [address] [address] [address] PCP - General Nurse Practitioner Family 04/18/2311/26 documented as of this encounter
--- OUTSIDE RECORDS SUMMARY | 2024-11-02 14:41 | XMS_ITS | Referral Summary ---
Author Organization [facility] [address] [facility] lto Address [address] [place] [address] Care Team Providers Care Tree Fruit And Nut Crops Farmer Name Role Phone Emmy Mcnair Unavailable Emmy [...] Date Abnormal findings on diagnostic imaging of agustina t 11/09/2014 Social History Tobacco Use Types Packs/Day Years Used Date Smoking Tobacco: Every Day Cigarettes Smokeless Tobacco: Never Tobacco Cessation:Ready to Q uit: Not Asked; Counseling Given: Not Answered Comments No Sex and Gender Information Value Date Recorded Sex Assigned at Not on file Legal Sex Female 2:41 AM DRILLER PORTABLE Gender Identity Not on file Sexual Orientation Not on file Last Filed Vital Signs Vital Sign Reading [...] 08/29/2022 11:19 AM CDT Plan of Treatment Not on file Procedures Procedure Name Priority Date/Time Associated Diagnosis [...] age 40, based on guidelines of the [place] [employer] (ACR Practice Parameter for the Performance of Screening and Diagnostic Mammography) and [place] [employer]. For women [...] Most Recently Relevant to Health Maintenance Insurance [facility] [id number] [facility] [id number] Care Teams Tree Fruit And Nut Crops Farmer Relationship Specialty [place] [address] [place] [address] PCP - General Physician Cad Designer 09/12/23 [place] [address] [address] Physician Cad Designer Physician Cad Designer 09/13/22
--- OUTSIDE RECORDS SUMMARY | 2024-11-02 14:41 | XMS_ITS | Encounter Summary ---
Author Organization [facility] Address [address] [place] [address] Care Team Providers Care Nutrition Counselor Name Role Phone Adrianne Aragon NP Primary Care Provider [phone] Encounter Details Date Type Department Care Team (Late st Contact Info) Description 07/16/2023 Fast PCR Diagnosticshart Message Enc [facility] Medical Group Family & Internal Medicine [facility] [phone] [place] [phone] [place] Mcnair [place] [phone] [place] [id number] [employer] Social History Tobacco Use Types Packs/Day Years Used Date Smoking Tobacco: Every Day Cigarettes 0.3 30 Passive Smoke Exposure: Current Smokeless Tobacco: Never Comments:Mixed feelings Alcohol Use Standard Drinks/Week Comments Yes 0 (1 standard drink = 0.6 oz pur e alcohol) Social occaisons PHQ-2 Answer Date Recorded Patient Health Questionnaire-2 Score 0 07/15/2023 Comments No Sex and Gender Information Value Date Recorded Sex Assigned at Not on file Legal Sex Female 8:26 PM CDT Gender Identity Female 06/04/2021 11:08 AM BACKUP ADMINISTRATOR Sexual Orientation Straight 06/04/2021 11 :08 AM BACKUP ADMINISTRATOR documented as of this encounter Plan of Treatment Not on file documented as of this encounter Visit Diagnoses Not on filedocumented in this encounter Additional Health Concerns Assessment Noted Time PHQ-9 Depression Total Score: 0 09/03/19 23 9:25 AM CDT documented as of this encounter Care Teams Nutrition Counselor Relationship Specialty [place] [address] [facility] [address] [address] PCP - General Nurse Practitioner Family 04/18/2311/26 documented as of this encounter
--- OUTSIDE RECORDS SUMMARY | 2024-11-02 14:41 | XMS_ITS | Encounter Summary ---
Author Organization [facility] Address [address] [place] [address] Care Team Providers Care Dynamometer Mechanic Name Role Phone Emmy Mcnair Primary Care Provider + [phone] Adrianne Aragon NP Primary Care Provider + [phone] Encounter Details Date Type Department Care Team (Late st Contact Info) Description 05/20/2022 [employer] Message Enc [facility] Medical Group Family & Internal Medicine [facility] [address] [place] [address] Emmy Mcnair, APRIL [id number] [place] [address] UTI Social History Tobacco Use Types Packs/Day Years [...] CDT Gender Identity Female 06/04/2021 11:08 AM SUPERVISOR PAYROLL Sexual Orientation Straight 06/04/2021 11 :08 AM SUPERVISOR PAYROLL documented as of this encounter Plan of Treatment Not on file documented as of this encounter Visit Diagnoses Not on filedocumented in this encounter Additional Health Concerns Assessment Noted Time PHQ-9 Depression Total Score: 0 06/06/19 22 7:57 AM SUPERVISOR PAYROLL documented as of this encounter Care Teams Dynamometer Mechanic Relationship Specialty [place] [address] [place] [address] PCP - General PHYSICIAN SAP BASIS ADMINISTRATOR 04/26/21 04/17/23 [place] [address] [address] [place] [address] PCP - General Nurse Practitioner Family 04/18/2311/26 documented as of this encounter
--- OUTSIDE RECORDS SUMMARY | 2024-11-02 14:41 | XMS_ITS | Encounter Summary ---
Author Organization [facility] Address [address] [facility] [place] [address] Care Team Providers Care Lithopone Mill Worker Name Role Phone Soha Henry MD Primary Care Provider [phone] Encounter Details Date Type Department Care Team (Late st Contact Info) Description 09/28/2024 Lab Requisition [facility] - DermPath Lab [address] [place] [address] Aguilar Collazo MD [facility] DERMATOLOGY [address] [place] [phone] Neoplasm of uncertain behavior of skin Social History Tobacco Use Types Packs/Day Years Used Date Smoking Tobacco: Every Day Cigarettes Alcohol Use Standard Drinks/Week Comments Yes 0 (1 standard drink = 0.6 oz pur e alcohol) Comments Unknown Sex and Gender Information Value Date Recorded Sex Assigned at Not on file Legal Sex Female 7:00 PM YARN TWISTER Gender Identity Not on file Sexual Orientation Not on file documented as of this encounter Plan of Treatment Not on file documented as of this encounter Procedures Procedure Name Priority Date/Time Associated Diagnosis Comments DERMATOPATHOLOGY Routine 09/27/2024 12:0 0 AM CDT Neoplasm of uncertain behavior of skin documented in this encounter Results * DERMATOPATHOLOGY (09/27/2024 12:00 AM CDT) Case Report Dermatopathology Report Case: [id number] Authorizing Provider: Aguilar Collazo MD Collected: 09/27/2024 12:00 AM Ordering Location: [facility] - Received: 09/29/2024 02:01 PM DermPath Lab Pathologist: Taniya Manzano MD Specimen: Skin, mid forehead 3:18 PM CDT DERMATOPATHOLOGY LABORATORY Final Diagnosis Specimen A. SKIN, mid forehead: HYPERKERATOSIS, ACANTHOSIS, AND TELANGIECTASES, SUPERFICIAL PORTIONS OF (I78.1) (see microscopic description and comment) 3:18 PM [facility] DERMATOPATHOLOGY LABORATORY at 1518 CDT Clinical History BCC vs Cyst 3:18 PM [facility] DERMATOPATHOLOGY LABORATORY Gross Description Specimen A: Received is one formalin filled container labeled with the patient's name and designated mid forehead. The specimen consists of a shave biopsy measuring 8x6x1 mm. Jar 0. 3:18 PM [facility] DERMATOPATHOLOGY LABORATORY Microscopic Description Specimen A. SKIN, mid forehead: Epidermis and superficial portions of papillary dermis are present for evaluation. There is hyperkeratosis and acanthosis. Within the dermis there are dilated thin-walled vessels lined by a single layer of endothelium. There is focal dermal fibrosis. The hematoxylin and eosin stain is reviewed; immunohistochemical stains are performed to further assess the histologic features. ERG highlights ectatic dermal vessels, that do not reveal a sigificantly increased proliferative index with CD31/Ki67 dual immunostain. D2-40 is positive in scattered ectatic vessels. SMA is positive in pericytes. HHV8 is negative. Additional deeper sections were obtained and reviewed. COMMENT: The histologic differential diagnosis includes a traumatized benign verrucous keratosis; and a lymphangioma. An angiofibroma was also considered; however, given the superficial nature of the biopsy specimen, a deeper dermal process cannot be excluded. 3:18 PM [facility] DERMATOPATHOLOGY LABORATORY Disclaimer An external and internal positive and negative controls are appropriate for the histochemical, immunohistochemical and immunofluorescence stain(s) in this case (if any), except where stated explicitly. The performance characteristics of the stain(s) cited in this report were developed and its performance characteristic determined by the Dermatopathology Laboratory at [facility], directed by Dr. Connor Pickard. These tests need not be, and therefore are not, approved by the [place] Food and Drug Administration. The tests are used for clinical purposes. Billing Codes Specimen Charges Stain Charges 06923 1 22409 52254 [id number] [id number] 92704 1 1 1 1 1 06/10/202 5 3:18 PM CDT DERMATOPATHOLOGY LABORATORY Embedded Images 3:18 PM CDT DERMATOPATHOLOGY LABORATORY Pathology/Cytolog y TISSUE SPECIMEN FROM SKIN / Unknown 09/27/2024 09/29/2024 2:01 PM CDT us Aguilar Collazo MD LAB - PATHOLOGY/CYTOLOGY ADAME COLLEEN Final Result DERMATOPATHOLOGY LABORATORY [facility] - Department of Dermatology [facility] Medicine [address] [place] [address], [address] [phone] documented in this encounter Visit Diagnoses Diagnosis Neoplasm of uncertain behavior of skin documented in this encounter Care Teams Lithopone Mill Worker Relationship Specialty Start Date End Date Soha Henry MD [address] [place] [address] PCP - General 03/15/11 documented as of this encounter
--- OUTSIDE RECORDS SUMMARY | 2024-11-02 14:41 | XMS_ITS | Encounter Summary ---
Author Organization [facility] Address [address] [place] [address] Care Team Providers Care Presentation Specialist Name Role Phone Emmy Mcnair Primary Care Provider + [phone] Adrianne Aragon NP Primary Care Provider + [phone] Encounter Details Date Type Department Care Team (Late st Contact Info) Description 07/18/2021 Log[employer] Message Enc [facility] Medical Group Family & Internal Medicine [facility] [address] [place] [address] [place] Mc[place]air [place] [phone] [place] [address] Lab orders; yeast rash Social History Tobacco Use Types Packs/Day Years [...] CDT Gender Identity Female 06/04/2021 11:08 AM PLATFORM ARCHITECT Sexual Orientation Straight 06/04/2021 11 :08 AM PLATFORM ARCHITECT documented as of this encounter Plan of Treatment Not on file documented as of this encounter Visit Diagnoses Not on filedocumented in this encounter Additional Health Concerns Assessment Noted Time PHQ-9 Depression Total Score: 0 06/06/19 22 7:57 AM PLATFORM ARCHITECT documented as of this encounter Care Teams Presentation Specialist Relationship Specialty [place] [address] [place] [address] PCP - General PHYSICIAN FILM PAINTER 04/26/21 04/17/23 [place] [address] [address] [place] [address] PCP - General Nurse Practitioner Family 04/18/2311/26 documented as of this encounter
--- OUTSIDE RECORDS SUMMARY | 2024-11-02 14:41 | XMS_ITS | Encounter Summary ---
Author Organization [facility] Address [address] [place] [address] Care Team Providers Care Manager Product Support Name Role Phone Emmy Mcnair Primary Care Provider + [phone] Adrianne Aragon NP Primary Care Provider + [phone] Encounter Details Date Type Department Care Team (Late st Contact Info) Description 09/18/2022 [employer] Message Enc [facility] Medical Group Family & Internal Medicine [facility] [address] [place] [address] [place] [address] [place] [address] Lung xray Social History Tobacco Use Types Packs/Day Years [...] CDT Gender Identity Female 06/04/2021 11:08 AM MANAGER PHARMACY Sexual Orientation Straight 06/04/2021 11 :08 AM MANAGER PHARMACY COVID-19 Exposure Response Date Recorded In the last 10 days, have yo u been in contact with someone who was confirmed or suspected to have Coronavirus/COVID-19? No / Unsure 09/17/2022 12:54 PM CDT documented as of this encounter Progress Notes * Malia Velásquez MA - 09/18/2022 12:16 PM CDT Ok for script? documented in this encounter Plan of Treatment Not on file documented as of this encounter Visit Diagnoses Diagnosis Obesity (BMI 30.0-34.9)- Primary Obesity, unspecified documented in this encounter Additional Health Concerns Assessment Noted Time PHQ-9 Depression Total Score: 0 09/03/19 9:25 AM CDT documented as of this encounter Care Teams Manager Product Support Relationship Specialty [place] [address] [place] [address] PCP - General PHYSICIAN AUTOMATIC LEHR OPERATOR 04/26/21 04/17/23 [place] [address] [address] [address] PCP - General Nurse Practitioner Family 04/18/2311/26 documented as of this encounter
--- OUTSIDE RECORDS SUMMARY | 2024-11-02 14:41 | XMS_ITS | Encounter Summary ---
Author Organization [facility] Address [address] [place] [address] Care Team Providers Care Beater Worker Helper Name Role Phone Emmy Mcnair Primary Care Provider + [phone] Adrianne Aragon NP Primary Care Provider + [phone] Encounter Details Date Type Department Care Team (Late st Contact Info) Description 06/01/2021 Sheology Message [facility] Medical Group Family & Internal Medicine [address] [address] [facility] Provider medication use Social History Tobacco Use Types Packs/Day Years Used Date Smoking Tobacco: Every Day Cigarettes Smokeless Tobacco: Never Comments:Mixed feelings Alcohol Use Standard Drinks/Week Comments Yes 0 (1 standard drink = 0.6 oz pur e alcohol) Social PHQ-2 Answer Date Recorded PHQ-2 Score - If the patient scores above 3, please move on to questions 3-9 0 04/26/2021 Comments No Sex and Gender Information Value Date Recorded Sex Assigned at Not on file Legal Sex Female 8:26 PM CDT Gender Identity Female 06/04/2021 11:08 AM PAPER MACHINE OPERATOR Sexual Orientation Straight 06/04/2021 11 :08 AM PAPER MACHINE OPERATOR COVID-19 Exposure Response Date Recorded In the last 10 days, have yo u been in contact with someone who was confirmed or suspected to have Coronavirus/COVID-19? No / Unsure 06/04/2021 10:43 AM PAPER MACHINE OPERATOR documented as of this encounter Plan of Treatment Not on file documented as of this encounter Visit Diagnoses Not on filedocumented in this encounter Additional Health Concerns Assessment Noted Time PHQ-9 Depression Total Score: 0 04/26/20 21 8:58 AM PAPER MACHINE OPERATOR documented as of this encounter Care Teams Beater Worker Helper Relationship Specialty [place] [address] [place] [address] PCP - General PHYSICIAN ENGINE BUILDUP MECHANIC 04/26/21 04/17/23 [place] [address] [address] [place] [address] PCP - General Nurse Practitioner Family 04/18/2311/26 documented as of this encounter
--- OUTSIDE RECORDS SUMMARY | 2024-11-02 14:41 | XMS_ITS | Encounter Summary ---
Author Organization [facility] Address [address] [place] [address] Care Team Providers Care Hearing Specialist Name Role Phone Emmy Mcnair Primary Care Provider + [phone] Adrianne Aragon NP Primary Care Provider + [phone] Encounter Details Date Type Department Care Team (Late st Contact Info) Description 09/17/2022 [employer] Message Enc [facility] Medical Group Family & Internal Medicine [facility] [address] [place] [address] [place] [address] [place] [address] [email or web address] Social History Tobacco Use Types Packs/Day Years [...] CDT Gender Identity Female 06/04/2021 11:08 AM CROP FARM WORKERS Sexual Orientation Straight 06/04/2021 11 :08 AM CROP FARM WORKERS COVID-19 Exposure Response Date Recorded In the [...] documented as of this encounter Care Teams Hearing Specialist Relationship Specialty [place] [address] [place] [address] PCP - General PHYSICIAN INTERN 04/26/21 04/17/23 [place] [address] [address] [place] [address] PCP - General Nurse Practitioner Family 04/18/2311/26 documented as of this encounter
--- OUTSIDE RECORDS SUMMARY | 2024-11-02 14:41 | XMS_ITS | Encounter Summary ---
Author Organization [facility] Address [address] [place] [address] Care Team Providers Care Propagator Laborer Name Role Phone Emmy Mcnair Primary Care Provider + [phone] Adrianne Aragon NP Primary Care Provider + [phone] Encounter Details Date Type Department Care Team (Late st Contact Info) Description 09/25/2022 [employer] Message Enc [facility] Medical Group Family & Internal Medicine [facility] [phone] [place] [address] [place] [address] [place] [address] Huma Social History Tobacco Use Types Packs/Day Years [...] CDT Gender Identity Female 06/04/2021 11:08 AM TRACK LEADER Sexual Orientation Straight 06/04/2021 11 :08 AM TRACK LEADER COVID-19 Exposure Response Date Recorded In the [...] documented as of this encounter Care Teams Propagator Laborer Relationship Specialty [place] [address] [place] [address] PCP - General PHYSICIAN CROP RANCH HAND 04/26/21 04/17/23 [place] [address] [address] [address] PCP - General Nurse Practitioner Family 04/18/2311/26 documented as of this encounter
--- OUTSIDE RECORDS SUMMARY | 2024-11-02 14:41 | XMS_ITS | Encounter Summary ---
Author Organization [facility] Address [address] [place] [address] Care Team Providers Care Machine Filler Name Role Phone Emmy Mcnair Primary Care Provider + [phone] Adrianne Aragon NP Primary Care Provider + [phone] Encounter Details Date Type Department Care Team (Late st Contact Info) Description 02/28/2022 E[employer] Message Enc [facility] Medical Group Family & Internal Medicine [facility] [address] [place] [address] [place] [address] [place] [address] Prescription Social History Tobacco Use Types Packs/Day Years [...] CDT Gender Identity Female 06/04/2021 11:08 AM IRON PILER Sexual Orientation Straight 06/04/2021 11 :08 AM IRON PILER COVID-19 Exposure Response Date Recorded In the [...] Total Score: 0 06/06/19 22 7:57 AM IRON PILER documented as of this encounter Care Teams Machine Filler Relationship Specialty [place] [address] [place] [address] PCP - General PHYSICIAN CLUBHOUSE ATTENDANT 04/26/21 04/17/23 [place] [address] [address] [facility] [address] [place] [address] PCP - General Nurse Practitioner Family 04/18/2311/26 documented as of this encounter
--- OUTSIDE RECORDS SUMMARY | 2024-11-02 14:41 | XMS_ITS | Encounter Summary ---
Author Organization [facility] Address [address] [place] [address] Care Team Providers Care Ground Wood Supervisor Name Role Phone Emmy Mcnair Primary Care Provider + [phone] Adrianne Aragon NP Primary Care Provider + [phone] Encounter Details Date Type Department Care Team (Late st Contact Info) Description 05/06/2022 [employer] Message Enc [facility] Medical Group Family & Internal Medicine [facility] [address] [place] [address] [place] Mcnair [place] [phone] [place] [address] [place] Social History Tobacco Use Types Packs/Day Years [...] CDT Gender Identity Female 06/04/2021 11:08 AM SUGAR MIXER Sexual Orientation Straight 06/04/2021 11 :08 AM SUGAR MIXER documented as of this encounter Progress Notes * APRIL Diana - 05/06/2022 8:57 AM CSTFrom: Stella Antunez To: Emmy Mcnair Sent: 05/06/2022 6:30 AM SUGAR MIXER Subject: Wegovy I was so excited to finally receive wegovy. I took my first injection friday morning. Since I have been so sick I cant function. The nausea is so bad. Other symptoms freezing cold and extreme fatigue. If I dont move I do ok. Trying to get ready, cook or just go to work or the store I cant do. Toomuch moving around. I dont thi nk this is going to work for me. Woukd a nausea medication help so Ican get back to work? How long will this extreme nausea last. R MIXER documented in this encounter Plan of Treatment Not on file documented as of this encounter Visit Diagnoses Diagnosis Nausea- Primary Nausea alone documented in this encounter Additional Health Concerns Assessment Noted Time PHQ-9 Depression Total Score: 0 06/06/19 7:57 AM SUGAR MIXER documented as of this encounter Care Teams Ground Wood Supervisor Relationship Specialty [place] [address] [place] [address] PCP - General PHYSICIAN MIXER RUNNER 04/26/21 04/17/23 [place] [address] [address] [facility] [address]. [place] [address] PCP - General Nurse Practitioner Family 04/18/2311/26 documented as of this encounter
--- OUTSIDE RECORDS SUMMARY | 2024-11-02 14:41 | XMS_ITS | Encounter Summary ---
Author Organization [facility] Address [address] [place] [address] Care Team Providers Care Hand Router Operator Name Role Phone Emmy Mcnair Primary Care Provider + [phone] Adrianne Aragon NP Primary Care Provider + [phone] Encounter Details Date Type Department Care Team (Late st Contact Info) Description 09/02/2022 A [employer] A Custom [employer] Message Enc [facility] Medical Group Family & Internal Medicine [facility] [address] [place] [address] Emmy Mcnair, APRIL [address] [place] [address] Help Social History Tobacco Use Types Packs/Day Years [...] CDT Gender Identity Female 06/04/2021 11:08 AM SWING FRAME GRINDER OPERATOR Sexual Orientation Straight 06/04/2021 11 :08 AM SWING FRAME GRINDER OPERATOR COVID-19 Exposure Response Date Recorded In [...] 09/02/2022 9:25 AM Zulema Edwards LPN Active Thoughts that you would be [...] Not difficult at all 09/02/2022 9:25 AM CDT Zulema Menon LPN Active * [place] Suicide Severity Rating Scale (Screener/Recent Self-Report) Question Answer Date of Assessment Author Status 1. Wish to be (Past 1 Month) No 09/02/2022 9:26 AM CDT Zulema Menon CIGAR TOBACCO REHANDLER Act rosa elena 2. Non-Specific Active Suicidal Thoughts (Past 1 Month) No 09/02/2022 9:26 AM CDT Zulema Menon CIGAR TOBACCO REHANDLER Act rosa elena 6. Suicidal Behavior (Lifetime) [...] as of this encounter Care Teams Hand Router Operator Relationship Specialty [place] [address] [place] [address] PCP - General PHYSICIAN CELERY CUTTER 04/26/21 04/17/23 [place] [address] [address] [place] [address] PCP - General Nurse Practitioner Family 04/18/2311/26 documented as of this encounter
--- OUTSIDE RECORDS SUMMARY | 2024-11-02 14:41 | XMS_ITS | Encounter Summary ---
Author Organization [facility] Address [address] [place] [address] Care Team Providers Care Fatback Trimmer Name Role Phone Emmy Mcnair Primary Care Provider + [phone] Adrianne Aragon NP Primary Care Provider + [phone] Encounter Details Date Type Department Care Team (Late st Contact Info) Description 02/13/2023 [employer] Message Enc [facility] Medical Group Family & Internal Medicine [facility] [address] [place] [address] [place] [address] [place] [address] Rene Stanton Social History Tobacco Use Types Packs/Day Years Used Date Smoking Tobacco: Every Day Cigarettes 0.3 30 Smokeless Tobacco: Never Comments:Mixed feelings Alcohol Use Standard Drinks/Week Comments Yes 0 (1 standard drink = 0.6 oz pur e alcohol) Social lefty PHQ-2 Answer Date Recorded Patient Health Questionnaire-2 Score 0 09/02/2022 Comments No Sex and Gender Information Value Date Recorded Sex Assigned at Not on file Legal Sex Female 8:26 PM CDT Gender Identity Female 06/04/2021 11:08 AM ACTUARIAL CONSULTANT Sexual Orientation Straight 06/04/2021 11 :08 AM ACTUARIAL CONSULTANT documented as of this encounter Plan of Treatment Not on file documented as of this encounter Visit Diagnoses Not on filedocumented in this encounter Additional Health Concerns Assessment Noted Time PHQ-9 Depression Total Score: 0 09/03/19 23 9:25 AM CDT documented as of this encounter Care Teams Fatback Trimmer Relationship Specialty [place] [address] [place] [address] PCP - General PHYSICIAN MILLINERY SALESPERSON 04/26/21 04/17/23 [place] [address] [address] [place] [address] PCP - General Nurse Practitioner Family 04/18/2311/26 documented as of this encounter
--- OUTSIDE RECORDS SUMMARY | 2024-11-02 14:41 | XMS_ITS | Encounter Summary ---
Author Organization [facility] Address [address] [place] [address] Care Team Providers Care Regional Engagement Consultant Name Role Phone Adrianne Aragon NP Primary Care Provider [phone] Encounter Details Date Type Department Care Team (Late st Contact Info) Description 07/16/2023 MyChart Message Enc [facility] Medical Group Family & Internal Medicine [address] [address] Adrianne Aragon [place] [address] [place] [address] [place] [id number] Ciproflaxin Social History Tobacco Use Types Packs/Day Years [...] CDT Gender Identity Female 06/04/2021 11:08 AM COIL FINISHER Sexual Orientation Straight 06/04/2021 11 :08 AM COIL FINISHER documented as of this encounter Progress Notes * Raegan Crenshaw RN - 07/16/2023 4:26 PM CDT Images from the original note were not included. APRIL Diana to Stella Vargas 07/16/23 1:38 PM Hard to say which med is causing the hives but more likely the cipro. If you are itching you can use benadryl. I would wait a day to start the Zebpak Emmy Message above was previously sent to patient documented in this encounter Plan of Treatment Not on file documented as of this encounter Visit Diagnoses Not on filedocumented in this encounter Additional Health Concerns Assessment Noted Time PHQ-9 Depression Total Score: 0 09/03/19 9:25 AM CDT documented as of this encounter Care Teams Regional Engagement Consultant Relationship Specialty [place] [address] [place] [address] PCP - General Nurse Practitioner Family 04/18/2311/26 documented as of this encounter
--- OUTSIDE RECORDS SUMMARY | 2024-11-02 14:41 | XMS_ITS | Encounter Summary ---
Author Organization [facility] Address [address] [place] [address] Care Team Providers Care Senior Digital Designer Name Role Phone Emmy Mcnair Primary Care Provider + [phone] Adrianne Aragon NP Primary Care Provider + [phone] Encounter Details Date Type Department Care Team (Late st Contact Info) Description 03/26/2022 Government Contract Professionals Message Enc [facility] Medical Group Family & Internal Medicine [facility] [id number] [place] [address] [place] [address] [place] [address] Sinus infection Social History Tobacco Use Types Packs/Day Years [...] CDT Gender Identity Female 06/04/2021 11:08 AM CODING AUDITOR Sexual Orientation Straight 06/04/2021 11 :08 AM CODING AUDITOR documented as of this encounter Plan of Treatment Not on file documented as of this encounter Visit Diagnoses Not on filedocumented in this encounter Additional Health Concerns Assessment Noted Time PHQ-9 Depression Total Score: 0 06/06/19 22 7:57 AM CODING AUDITOR documented as of this encounter Care Teams Senior Digital Designer Relationship Specialty [place] [address] [place] [address] PCP - General PHYSICIAN GOSPEL SINGER 04/26/21 04/17/23 [place] [address] [address] [address] PCP - General Nurse Practitioner Family 04/18/2311/26 documented as of this encounter
--- OUTSIDE RECORDS SUMMARY | 2024-11-02 14:41 | XMS_ITS | Clinical Summary ---
Author Organization [facility] Address [address] [place] [address] Care Team Providers Care Headhunter Name Role Phone Soha Henry MD Primary Care Provider [phone] Source Comments [facility],non-owned Affiliates and Associated Physician Practices is amultiple site organization consisting of ambulatory clinics and hospital sitesin [place], [place], [place] and [place]. This disclosure is being madepursuant to the Care Everywhere program and may not contain all information available regarding this patient. Last updated 18.[facility] Encounters Date Type Department Care Team Description 09/28/2024 Lab Requisition [facility] - DermPath Lab [address] [place] [id number] Aguilar Collazo MD Neoplasm of uncertain behavior of skin from Last 3 Months Family History Medical History Relation Name Comments Glaucoma Neg Hx Macular Degeneration Neg Hx Social History Tobacco Use Types Packs/Day Years Used Date Smoking Tobacco: Every Day Cigarettes Alcohol Use Standard Drinks/Week Comments Yes 0 (1 standard drink = 0.6 oz pur e alcohol) Comments Unknown Sex and Gender Information Value Date Recorded Sex Assigned at Not on file 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 Gender Identity Not on file Sexual Orientation Not on file Plan of Treatment Health Maintenance Due Date Last Done Comments COLOGUARD (AGES 45-75) - COL ON CA SCREENING 1964 COLON MONITORING 1964 COLONOSCOPY - COLON CA SCREENING 1964 CT COLONOGRAPHY - COLON CA SCREENING 1964 Colorectal Cancer Screening 1964 FIT - COLON CA SCREENING 1964 FLEX SIG - COLON CA SCREENING 1964 LIPID TESTING 1964 MAMMOGRAM 1964 HIV SCREENING 10/21/1979 HEPATITIS C SCREENING 10/16/1982 DTAP/TDAP/TD VACCINES (1 - Tdap) 10/21/1983 PNEUMOCOCCAL VACCINE 50+ (1 of 2 - PCV) 10/21/1983 PAP SMEAR 1985 ZOSTER VACCINE (1 of 2) 2014 COVID-19 VACCINE (2023-2 5 season) 2023 DEPRESSION SCREENING 04/28/2024 INFLUENZA VACCINE (Season Ended) 2024 Respiratory Syncytial Virus (RSV) Vaccine Pt: or over 60 yrs (1 - 1-dose 75+ series) 10/21/2039 HEPATITIS B VACCINE Aged Out No longe r eligible based on patient's age to complete this topic HIB VACCINE Aged Out No longer eligi ble based on patient's age to complete this topic HPV VACCINE Aged Out No longer eligi ble based on patient's age to complete this topic MENINGOCOCCAL (Group B) VACC INE SHARED DECISION-MAKING Aged Out No longer eligibl e based on patient's age to complete this topic MENINGOCOCCAL GROUPS A/C/Y/W VACCINE Aged Out No longer eligible b ased on patient's age to complete this topic Procedures Procedure Name Priority Date/Time Associated Diagnosis Comments DERMATOPATHOLOGY Routine 09/27/2024 12:0 0 AM CDT Neoplasm of uncertain behavior of skin from Last 3 Months Results * DERMATOPATHOLOGY (09/27/2024 12:00 AM CDT) Case Report Dermatopathology Report Case: [id number] Authorizing Provider: Aguilar Collazo MD Collected: 09/27/2024 12:00 AM Ordering Location: [facility] - Received: 09/29/2024 02:01 PM DermPath Lab Pathologist: Taniya Manzano MD Specimen: Skin, mid forehead 3:18 PM CDT DERMATOPATHOLOGY LABORATORY Final Diagnosis Specimen A. SKIN, mid forehead: HYPERKERATOSIS, ACANTHOSIS, AND TELANGIECTASES, SUPERFICIAL PORTIONS OF (I78.1) (see microscopic description and comment) 3:18 PM CDT DERMATOPATHOLOGY LABORATORY at 1518 CDT Clinical History BCC vs Cyst 3:18 PM CDT DERMATOPATHOLOGY LABORATORY Gross Description Specimen A: Received is one formalin filled container labeled with the patient's name and designated mid forehead. The specimen consists of a shave biopsy measuring 8x6x1 mm. Jar 0. 3:18 PM T DERMATOPATHOLOGY LABORATORY Microscopic Description Specimen A. SKIN, [...] dermal process cannot be excluded. 3:18 PM T DERMATOPATHOLOGY LABORATORY Disclaimer An external and internal positive and negative controls are appropriate for the histochemical, immunohistochemical and immunofluorescence stain(s) in this case (if any), except where stated explicitly. The performance characteristics of the stain(s) cited in this report were developed and its performance characteristic determined by the Dermatopathology Laboratory at [facility], directed by Dr. Connor Pickard. These tests need not be, and therefore are not, approved by the [place] Food and Drug Administration. The tests are used for clinical purposes. Billing Codes Specimen Charges Stain Charges 54392 1 92339 18954 45611 55434 21188 1 1 1 1 1 3:18 PM CDT DERMATOPATHOLOGY LABORATORY Embedded Images 3:18 PM CDT DERMATOPATHOLOGY LABORATORY Pathology/Cytolog y TISSUE SPECIMEN FROM SKIN / Unknown 09/27/2024 09/29/2024 2:01 PM CDT us Aguilar Collazo MD LAB - PATHOLOGY/CYTOLOGY BRIANNA MACIAS Final Result DERMATOPATHOLOGY LABORATORY [facility] - Department of Dermatology [facility] [address]rd [place] [address], [facility] [phone] from Last 3 Months Insurance [employer] Care Teams Headhunter Relationship Specialty Start Date End Date Soha Henry MD [address] [place] [address] PCP - General 03/15/11
--- OUTSIDE RECORDS SUMMARY | 2024-11-02 14:41 | XMS_ITS | Encounter Summary ---
Author Organization [facility] Address [address] [place] [address] Care Team Providers Care Customer Assistance Associate Name Role Phone Emmy Mcnair Primary Care Provider + [phone] Adrianne Aragon NP Primary Care Provider + [phone] Encounter Details Date Type Department Care Team (Late st Contact Info) Description 10/02/2022 Viralheatt Message Enc [facility] Medical Group Family & Internal Medicine [facility] [address] [place] [address] [place] [address] [place] [address] Left Rib Social History Tobacco Use Types Packs/Day [...] CDT Gender Identity Female 06/04/2021 11:08 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 [address] PCP - General Nurse Practitioner Family 04/18/2311/26 documented as of this encounter
--- OUTSIDE RECORDS SUMMARY | 2024-11-02 14:41 | XMS_ITS | Data Portability ---
Author Organization [facility], [facility]) Address [address] [place] [address] Care Team Providers Care Operating Manager Name Role Phone ADALI MORGAN Primary Care Provider [phone] Assessment Encounter Date Assessment Date Assessment LastModified by Organization Details LastModified Time 02/20/2024 02/20/2024 58 year old with a history of symptomatic hemorrhoids presenting for initial evaluation for the hemorrhoid artery embolization procedure. The patient has tried conservative therapy including increasing water intake, fiber supplements, stool softners, preperation H cream and limiting sitting, standing, and straining without an improvement of their symptoms. She has also underwent procedures including hemorrhoidectomy and banding to no avail. The patient is complaining of rectal pain, bleeding, burning,incomplete emptying of the bowel and itching. She has recently completed a cologuard test. Given the patient s continued hemorrhoidal symptoms despite the use of conservative measures, I believe a visceral angiogram with possible embolization may be warranted. The risks and benefits have been explained and treatment planning is underway. I spent a total of 45 minutes with the patient. The time was spent reviewing the chart ,discussing with patient and/or family and forming a treatment plan [email or web address] Not available 02/21/2024 23:43:48 Plan of Treatment Reminders Order Date Submit Date Provider Last Modified By Organization Details Last Modified Time Details Appointments None recorded . Lab PT/INR 02/20/20 [email or web address] Not available 09:14:09 CBC 02/20/20 [email or web address] Not available 4 09:14:09 CMP, serum or plasma 02/20/20 [email or web address] Not available 09:14:09 Referral None recorded . Procedures None recorded . Surgeries None recorded . Imaging None recorded . Medication Orders None recorded . Patient TargetsNo targets recorded. Patient InstructionsNo instructions recorded. Reason for Referral None Reported. Problems Name Problem SNOMED Code Status Onset Date Resolution Date Notes Provider Name and Address Organization Details Recorded Time Hypothyroidism 24724392 Active 2023 Edel Iannchey null, [place] - [facility] 13:23:54 Hemorrhoids 78920456 Active 2023 Edel Hinchey null, [place] - [facility] and 13:24:18 Problem Notes None recorded. Procedures Surgical History Date Name Laterality Status Provider Name and Address Organization Details Recorded Time 08/26/2021 completed Edel Iannchey [place] - [facility] 02/20/2024 13:23:25 Imaging Results None recorded. Procedure Notes None recorded. Medical Equipment None Reported. Allergies No known drug allergies Medications Name Sig Start Date Stop Date Status Note LastModified by Organization Details LastModified Time tizanidine 2 mg tablet TAKE 1 TABLET BY MOUTH THREE TIMES DAILY active Not Available Not Available No t Available azithromyci n 250 mg tablet FOLLOW PACKAGE DIRECTION S 02/17 completed Not Available Not Available Not Available ciprofloxac in 500 mg tablet TAKE 1 TABLET BY MOUTH TWICE DAILY 02/17 completed Not Available Not Available Not Available omeprazole 40 mg capsule,del ayed release TAKE 1 CAPSULE BY MOUTH DAILY active Not Available Not Available No t Available ondansetron 8 mg disintegrat ing tablet DISSOLVE 1 TABLET ON THE TONGUE EVERY 12 HOURS NEEDED FOR NAUSEA OR VOMITING active Not Available Not Available No t Available levothyroxi ne 100 mcg tablet 02/17 completed Not Available Not Available Not Available amoxicillin 875 mg tablet TAKE 1 TABLET BY MOUTH EVERY 12 HOURS 02/17 completed Not Available Not Available Not Available famotidine 20 mg tablet 02/17 completed Not Available Not Available Not Available benzonatate 100 mg capsule 02/17 completed Not Available Not Available Not Available pantoprazol e 40 mg tablet,isabel yed release TAKE 1 TABLET BY MOUTH EVERY MORNING active Not Available Not Available No t Available hydrochloro thiazide 12.5 mg capsule active Not Available Not Available Not Available azelastine 137 mcg (0.1 %) nasal spray USE 1 SPRAY IN EACH NOSTRIL EVERY 12 HOURS active Not Available Not Available No t Available levothyroxi ne 112 mcg tablet TAKE 1 TABLET BY MOUTH DAILY active Not Available Not Available No t Available Tirosint-So l 100 mcg/mL oral solution TAKE 1 ML BY MOUTH EVERY MORNING BEFORE BREAKFAST 02/17 completed Not Available Not Available Not Available Zepbound 2.5 mg/0.5 mL subcutaneou s pen injector ADMINISTE R 2.5 MG UNDER THE SKIN WEEKLY FOR 4 WEEKS active Not Available Not Available No t Available Vitals Date Recorded Body height Body mass index (BMI) Body weight Provider Name and Address Organization Details Last Updated DateTime 02/20/2024 157.48 cm 30.2 kg/m2 35852.74 g Edel Bolton [facility] - [facility] and 02/20/2024 13:23:10 Social History Question Answer Notes LastModified by Organizat ion Details LastModified Time Tobacco Smoking Status Current Every Day Smoker Edel matson, [facility] - [facility] and 02/20/2024 13:23:34 What Is The Highest Grade Or Level Of School You Have Completed Or The Highest Degree You Have Received? TF77571-8 Information not available 02/20/2024 What Was The Date Of Your Most Recent Tobacco Screening? 02/20/2024 Information not available 02/20/2024 How Much Tobacco Do You Smoke? 0.25 PPD Information not available 02/20/2024 How Many Years Have You Smoked Tobacco? 30 Information not available 02/20/2024 Sex: Unknown Functional Status Question Answer Note LastModified by Organizat ion Details LastModified Time What is your level of alcohol consumption? 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 Family History Relationship Description Onset Age of this Age Resolved Age Notes LastModified by Organization Details LastModified Time Mother Cerebrovascu lar accident 57 62 Not available 13:23:16 Mother Hypertensive disorder 50 62 Not available 2023 13:23:16 Mother Diabetes mellitus 50 62 Not available 2023 13:23:16 Father Diabetes mellitus 25 Not available 2023 13:23:16 Medical History Condition Response Anxiety Disorder N Varicose Veins N Anticoagulation therapy N Diabetes N Coronary Artery Disease N Bleeding Disorder N Hyperlipidemia N Cancer N Stroke N Asthma N COPD N Pacemaker N Clotting Disorder N Anemia N Neurologic Disorder N Hepatitis N Genitourinary Disease N Heart Disease N Ulcers N Gastrointestinal Disease N Pulmonary Embolism N Deep Vein Thrombosis N Hypertension N Kidney Disease N Gynecological History Statement/Question Response N 10/26/2020 Sexually Active? Y N N 08/26/2021 N Current Control Method Menopause Obstetrics History GPAL:G 0 P 0 0 0 0 Past Encounters Encounter ID Performer Location Encounter Start Date Encounter Closed Date Diagnosis/Indication Diagnosis SNOMED-CT Code Diagnosis ICD10 Code Diagnosis Note [id number] Maribell Ochoa MD [address] [address] 02/20/2024 12:22:20 02/23/2024 09:25:33 Pre-surgery testing 622346227 Z01.89 Rectal pain 54024052 K62 .89 Rectal hemorrhage 414538 02 K62.5 Hemorrhoids 45674493 K64 .9 Health Concerns Section Related Observation LastModified by Organization Detai ls LastModified Time None Recorded Concern Status LastModified by Organization Details LastModified Time None Recorded Advance Directives Directive None Recorded Payers Insurance Date Sequence Insurance Name Policy Number Policy Dougherty Covered Member ID Dougherty Member ID Guarantor Name 02/20/2024 1 [employer] - OPEN ACCESS Stella Antunez [id number] OI Stella Antunez Notes Date Note Type Note Provider Name and Address Organization Details Recorded Time 02/20/2024 text/html OA Rectal BleedingReported bypatient.Symptomsbloo d seen with wiping; not related to bowel movement;anal itching;Moderate anal pain: 4/10 to 6/10 Severity:moderate Duration:present for >6 months Timing:gradual Modifying Factors:Sitz Bath; NSAIDs; Hemorrhoid Cream; High Fiber diet; Initial improvement, but still persistent Associated Symptoms:cramping;diff icult bowel movements Aggravating Factorsbowel movement; SittingNotes:She has also completed hemorrhoidectomy and two hemorrhoid bands with continued symptoms. Her hemorrhoids has caused her stools to be thin. She recently started weight loss injectable (GLP) and endorses the use of senna. LUIS PONCE, TUNNEL FORM PLACING SUPERVISOR [address] [facility], [place] [address], [place], [address], [facility] and 02/21/2024 23:44:54 OBGyn Episode No OBEpisode recorded.
--- OUTSIDE RECORDS SUMMARY | 2024-11-02 14:41 | XMS_ITS | Encounter Summary ---
Author Organization [facility] Address [address] [place] [address] Care Team Providers Care Business Development Recruiter Name Role Phone Emmy Mcnair Primary Care Provider + [phone] Adrianne Aragon NP Primary Care Provider + [phone] Encounter Details Date Type Department Care Team (Late st Contact Info) Description 12/10/2021 Evtron Message Enc [facility] Medical Group Family & Internal Medicine [facility] [address] [place] [address] Emmy Mcnair, [place] [address] [place] [address] Phentermine Social History Tobacco Use Types Packs/Day Years [...] CDT Gender Identity Female 06/04/2021 11: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 [place] [address] PCP - General Nurse Practitioner Family 04/18/2311/26 documented as of this encounter
--- OUTSIDE RECORDS SUMMARY | 2024-11-02 14:41 | XMS_ITS | Encounter Summary ---
Author Organization [facility] Address [address] [place] [address] Care Team Providers Care Waste Recycler Name Role Phone Emmy Mcnair Primary Care Provider + [phone] Adrianne Aragon NP Primary Care Provider + [phone] Encounter Details Date Type Department Care Team (Late st Contact Info) Description 04/12/2023 Fastclick Message Enc [facility] Medical Group Family & Internal Medicine [facility] [address] [place] [address] [place] [address] [place] [address] Hctz refill Social History Tobacco Use Types Packs/Day Years [...] CDT Gender Identity Female 06/04/2021 11:08 AM QUARRYING MANAGER Sexual Orientation Straight 06/04/2021 11 :08 AM QUARRYING MANAGER documented as of this encounter Plan of Treatment Not on file documented as of this encounter Visit Diagnoses Not on filedocumented in this encounter Additional Health Concerns Assessment Noted Time PHQ-9 Depression Total Score: 0 09/03/19 23 9:25 AM CDT documented as of this encounter Care Teams Waste Recycler Relationship Specialty [place] [address] [place] [address] PCP - General PHYSICIAN INTEGRATED LOGISTICS SUPPORT MANAGER 04/26/21 04/17/23 [place] [address] [address] [address] PCP - General Nurse Practitioner Family 04/18/2311/26 documented as of this encounter
== END 2024-11-02 14:38 | disposition home or self-care (01) ==
PROVIDERS: PCP Nurse Practitioner Adult Health; Visit Provider Nurse Practitioner Adult Health
DX: J32.9 Chronic sinusitis, unspecified (principal)
CPT/HCPCS: 70220

== ENCOUNTER 2024-11-04 08:39 | Outpatient (CLI) | payer OTHER, SELFPAY ==
--- NOTE | ~2024-11-04 | CT_ITS ---
CT sinus wo con Ordering provider: Dana Butler APRN History: . Chronic sinusitis, unspecified . Comparison: March 31, 2019 Technique: Thin slice Scans CT of the paranasal sinuses was performed with coronal and sagittal refor matted images. No IV contrast. . Automated exposure control and iterative reconstruction technique w ere employed. The dose-length product was 396.68 mGy-cm. Findings: NASAL SEPTUM: Very mild right nasal septal deviation. OSTEOMEATAL UNITS: Bilaterally patent. NASAL TURBINATES AND NASOPHARYNX: Hallie bullosa in the right middle turbinate. Otherwise, Normal. PARANASAL SINUSES: Well aerated. VISUALIZED MASTOIDS: Normal as visualized. BONES: Normal. SUPERFICIAL SOFT TISSUES/VISUALIZED BRAIN PARENCHYMA: Normal. IMPRESSION: Very mild right nasal septal deviation. Hallie bullosa in the right middle turbinate. Other appearances are unremarkable. Reviewed, dictated and finalized at location A.
== END 2024-11-04 08:40 | disposition home or self-care (01) ==
LOC: GOSHIMG 08:40
PROVIDERS: PCP Nurse Practitioner Adult Health; Visit Provider Nurse Practitioner Adult Health
DX: J32.9 Chronic sinusitis, unspecified (principal); J34.2 Deviated nasal septum
CPT/HCPCS: 70486

== ENCOUNTER 2025-01-11 07:12 | Outpatient (CLI) | payer OTHER, SELFPAY ==
[2025-01-11 19:33] LABS: Alanine Aminotransferase 17 U/L (6-35); Albumin Level 3.9 g/dL (3.5-5.1); Alkaline Phosphatase 74 U/L (38-126); Anion Gap 6 mmol/L (4-12); Aspartate Amino Transferase 51 U/L (14-36); Bilirubin,Total 0.6 mg/dL (0.2-1.3); Blood Urea Nitrogen 20 mg/dL (7-17); Calcium 9.2 mg/dL (8.4-10.2); Carbon Dioxide 30 mmol/L (22-30); Chloride 103 mmol/L (98-107); Cholesterol 213 mg/dL (0-200); Estimated Glomerular Filt Rate > 60; Glucose 73 mg/dL (65-110); HDL Direct 34 mg/dL; Potassium 4.0 mmol/L (3.4-5.0); Sodium 139 mmol/L (137-145); Total Protein 7.1 g/dL (6.3-8.2); Triglycerides 115 mg/dL (<150)
[2025-01-11 19:43] LABS: Hematocrit 43.9 % (37.0-47.0); Hemoglobin 13.8 g/dL (12.0-15.0); Mean Corpuscular HGB Conc 31.4 g/dl (32-36); Mean Corpuscular Hemoglobin 30.5 pg (26-34); Mean Corpuscular Volume 97.1 fl (80-100); Platelet Count Result 290 k/mm3 (150-375); Red Blood Count 4.52 M/mm3 (4.2-5.4); White Blood Count 6.5 K/mm3 (4.5-10.0)
[2025-01-11 19:54] LABS: Iron 82 ug/dL (37-170)
[2025-01-11 20:07] LABS: Percent Iron Saturation 25 % (20-50)
[2025-01-11 20:41] LABS: Thyroid Stimulating Hormone < 0.015 uIU/mL (0.465-4.680)
[2025-01-11 20:56] LABS: Ferritin 26.90 ng/mL (11.1-264)
[2025-01-11 21:03] LABS: Vitamin B12 > 1000.0 pg/mL (239-931)
== END 2025-01-11 07:13 | disposition home or self-care (01) ==
LOC: ANHBWCLAB 07:13
PROVIDERS: PCP Nurse Practitioner Adult Health; Visit Provider Nurse Practitioner Adult Health
DX: Z00.00 Encounter for general adult medical examination without abnormal findings (principal); R68.89 Other general symptoms and signs; Z51.81 Encounter for therapeutic drug level monitoring
CPT/HCPCS: 36415; 80053; 80061; 82607; 82728; 83540; 83550; 84443; 85027

== ENCOUNTER 2025-04-18 14:20 | Outpatient (CLI) | payer OTHER, SELFPAY ==
--- OUTSIDE RECORDS SUMMARY | 2025-04-18 16:10 | XMS_ITS | Clinical Summary ---
Author Organization [facility] Address [address] [place] [address] Care Team Providers Care Assayer Helper Name Role Phone Unavailable Primary Care Provider [...] CDT Gender Identity Female 06/04/2021 11:08 AM SHIFT PRODUCTION SUPERVISOR Sexual Orientation Straight 06/04/2021 11 :08 AM SHIFT PRODUCTION SUPERVISOR Last Filed Vital Signs Vital Sign Reading [...] of 2) 2014 Annual Physical 04/26/2022 04/26/2021 Cervical Cancer Screening Pap Smear (Age 30 to 64) Every 3 Years 04/26/2024 04/26/2021 PHQ-2 (Physician [place]) 04/28/2024 07/15/2023 Colorectal Cancer Screening FIT-DNA (3 Years) 05/14/2024 05/14/2021, 05/14/2021 Mammogram Screening 09/13/2024 09/13/2022 COVID-19 Vaccine ( season) 2024 02/07/2022, 04/26/2021, 08/13/2020, Additional history exists Influenza Adult (#1) 2025 04/23/2023, 02/07/2022, 04/26/2021 Cervical Cancer Screening Pap with HPV Testing (Age 30 to 64) Every 5 Years 04/26/2026 04/26/2021 Cervical Cancer Screening with HPV 04/26/2026 RSV Immunization or 60+ Years (1 - 1-dose 75+ series) 10/21/2039 Hepatitis C Completed 04/23/2023 Hepatitis A Vaccines Aged Out No long er eligible based on patient's age to complete this topic Meningococcal B Vaccine Aged Out No l [...] TO HCV RNA Routine 04/23/2023 11:57 AM SHIFT PRODUCTION SUPERVISOR Encounter for hepatitis C screening test for low risk patient MAMMOGRAM GENERIC (SCAN ORDER) Routine 09/13/2022 COLOGUARD (EXACT SCIENCE) Routine 05/14/2021 9:15 AM SHIFT PRODUCTION SUPERVISOR Colon cancer screening HUMAN PAPILLOMAVIRUS, HIGH-RISK TYPES Routine 04/26/2021 12:30 PM SHIFT PRODUCTION SUPERVISOR CYTOPATH CERV/VAG THIN LAYER Routine 04/26/2021 11:09 AM SHIFT PRODUCTION SUPERVISOR from Last 3 Months or Most Recently Relevant to Health Maintenance Results * HEPATITIS C ANTIBODY ([facility] ONLY) (04/23/2023 11:57 AM SHIFT PRODUCTION SUPERVISOR) HEPATITIS C AB NON-REACT NEELIMA NON-REACT NEELIMA [facility] Comment: HCV antibody was non-reactive. There is no laboratory evidence of HCV infection. In most cases, no further action is required. However, if recent HCV exposure is suspected, a test for HCV RNA (test code 37338) is suggested. For additional information please refer to http://education.JobSync/faq/DTY22y9 (This link is being provided for informational/ educational purposes only.) 04/23/2023 11:5 7 AM SHIFT PRODUCTION SUPERVISOR 04/24/2023 12:20 PM SHIFT PRODUCTION SUPERVISOR Narrative Resulting Agency Comment Performing Organization Information: Site ID: [id number] Name: [facility] Address: [address] [address] Director: Derrick Bojorquez MD Adrianne Aragon NP LABORATORY Final Result [facility] [place] [facility] [address] [address], [place] * MAMMOGRAM (09/13/2022) Anatomical Region Laterality Modality Other us Doc [facility] Scanned SCANNING Final Resu lt * COLOGUARD (EXACT SCIENCE) (05/14/2021 9:15 AM SHIFT PRODUCTION SUPERVISOR) COLOGUARD RESULT Negative Negative [facility] (CLIA #:[id number]) Comment: NEGATIVE TEST RESULT. A negative Cologuard [...] Barahona et al, N Engl J Med 2014;370(14):5876-5636) The normal value (reference range) for this assay is negative. COLOGUARD RE-SCREENING RECOMMENDATION: Periodic colorectal cancer screening is an important part of preventive healthcare for asymptomatic individuals at average risk for colorectal cancer. Following a negative Cologuard result, the [place] Cancer Society and U.S. Multi-Society Task Force screening guidelines recommend a Cologuard re-screening interval of 3 years. References: [place] [employer] Guideline for Colorectal Cancer Screening: https://www.cancer.org/cancer/xbgdr-vlkame-jmvfkc/sawoccdju-ncsdwkblx-emwoeje/ac s-rec ommendations.html.; Dell DK, Luis Felipe CR, Mary Kay DavalosK, Colorectal Cancer Screening: Recommendations for Physicians and Patients from the U.S. Multi-Society Task Force on Colorectal Cancer Screening , Am J Gastroenterology 2017; 112:1101-6520. TEST DESCRIPTION: Composite algorithmic analysis of stool [...] Barahona et al, N Engl J Med 2014;370(14):2411-2349.) Cologuard may produce a false negative or false positive result (no colorectal cancer or precancerous polyp present at colonoscopy follow up). A negative Cologuard test result does not guarantee the absence of CRC or advanced adenoma (pre-cancer). The current Cologuard screening interval is every 3 years. ([place] Cancer Society and U.S. Multi-Society Task Force). Cologuard performance data in a 10,000 patient pivotal study using colonoscopy as the reference method can be accessed at the following location: www.Vusay.Monitise/results. Additional description of the Cologuard test process, warnings and precautions can be found at www.Helion Energyoguard.com. STOOL STOOL SPECIMEN / Unknown 05/14/2021 9:15 AM SHIFT PRODUCTION SUPERVISOR 05/15/2021 12:21 PM SHIFT PRODUCTION SUPERVISOR us Emmy CHEN BODY FLUIDS AND STOOLS ORDER ALBER Final Result [facility] [employer] ([facility]) [address] [place] [place] [address], [employer] (CLIA #:[id number]) [address] [place] [address] * HUMAN PAPILLOMAVIRUS, HIGH-RISK TYPES (04/26/2021 12:30 PM SHIFT PRODUCTION SUPERVISOR) SPEC DESCRIPTION CERVICAL/END OCERVICAL 04/30/2021 12:37 PM SHIFT PRODUCTION SUPERVISOR [facility] HPV DNA HIGH RISK NEGATIVE NEGATIVE 04/30/2021 5:19 PM SHIFT PRODUCTION SUPERVISOR [facility] Comment:SEE CYTOLOGY REPORT 04/26/2021 12:3 0 PM SHIFT PRODUCTION SUPERVISOR us Emmy CHEN PATHOLOGY/CYTOLOGY ORDERABLE S Final Result [facility] [address] [place] [address], * Cytopath Cerv/Vag Thin Layer (04/26/2021 11:09 AM SHIFT PRODUCTION SUPERVISOR) THIN PREP PAP [facility] [address] [place] [address] Department of Pathology Pathology Report CERVICAL/VAGINAL PAP SMEAR REPORT Name: CHERELLE LYN Age: 6 1965 (Age: 55) Location: [facility] Sex: F Collected Date: 04/26/2021 Hospital #: [id number] Date Received: 04/30/2021 Date Reported: 05/01/2021 Provider: [...] not effective in detecting cervical adenocarcinoma. [facility] 04/26/2021 11:0 9 AM SHIFT PRODUCTION SUPERVISOR 04/30/2021 11:09 AM SHIFT PRODUCTION SUPERVISOR Comment:CERVICAL/ENDOCERVICA L Emmy CHEN PATHOLOGY/CYTOLOGY ORDERABLE S Final Result [facility] [address] [place] [address], from Last 3 Months or Most Recently Relevant to Health Maintenance Insurance [employer]
--- OUTSIDE RECORDS SUMMARY | 2025-04-18 16:11 | XMS_ITS | Encounter Summary ---
Author Organization [facility] Address [address] [place] [address] Care Team Providers Care Signing Teacher Name Role Phone Emmy Mcnair Primary Care Provider + [phone] Adrianne Aragon NP Primary Care Provider + [phone] Encounter Details Date Type Department Care Team (Late st Contact Info) Description 12/05/2021 [employer] Message Enc [facility] Medical Group Family & Internal Medicine [facility] [id number] [place] [phone] Emmy Mcnair [place] [phone] [place] [address] [place] Social History Tobacco Use Types [...] CDT Gender Identity Female 06/04/2021 11:08 AM UTILITY BILL COLLECTOR Sexual Orientation Straight 06/04/2021 11 :08 AM UTILITY BILL COLLECTOR COVID-19 Exposure Response Date Recorded In the [...] Total Score: 0 06/06/19 22 7:57 AM UTILITY BILL COLLECTOR documented as of this encounter Care Teams Signing Teacher Relationship Specialty [place] [address] [place] [address] PCP - General PHYSICIAN ACTUARIAL DIRECTOR 04/26/21 04/17/23 [place] [address] [address] [place] [address]. [place] [address] PCP - General Nurse Practitioner Family 04/18/2311/26 documented as of this encounter
--- OUTSIDE RECORDS SUMMARY | 2025-04-18 16:11 | XMS_ITS | Clinical Summary ---
Author Organization [facility] [address] [facility] lt Address [address] [place] [address] Care Team Providers Care Staff Command And Control Officer Name Role Phone Emmy Mcnair PA Unavailable [phone] Dana Butler NP Primary Care Provider [phone] Allergies Active Allergy Reactions Criticality Noted Date [...] on diagnostic imaging of breas t 11/09/2014 Encounters Date Type Department Care Team Description 01/31/2025 3:26 PM CDT - 01/31/2025 11:59 PM [place] [address] Screening mammogram, encounter for Discharge Disposition: Discharge to home or self care from Last 3 Months Surgical History Surgery Date Site/Laterality Comments [place] CHOLECYSTECTOMY Cholecystectomy - (Added by TW Conv) CATARACT EXTRACTION Cataract Surgery - (Added by TW Conv) [place] TONSILLECTOMY PRIMARY/SECONDARY <AGE 12 Tonsillectomy - (Added [...] on file Legal Sex Female 2:41 AM CEMENT AND CONCRETE PLANT WORKER Gender Identity Female 01/11/2025 1:32 PM CDT Sexual Orientation Not on file Obstetrics History [...] CDT Inhaled Oxygen Concentration - - Weight 80.3 kg (177 lb) 01/31/2025 3:45 PM CDT Height 160 cm (5' 3) 01/31/2025 3:45 PM CDT Body Mass Index 31.35 01/31/2025 3:45 PM CDT Plan of Treatment Health Maintenance Due Date Last Done Comments Colon Cancer Screening-Colonoscopy 1965 Depression Screening 1965 Hepatitis C Screening 1965 DTaP/Tdap/Td Vaccine (1 - Tdap) 10/21/1975 Hepatitis B Screening 1982 Regular Well Visit/Exam 18-64 1982 Pneumococcal vaccine <65 (1 of 2 - PCV) 10/21/1983 Zoster Vaccine (1 of 2) 2014 Cervical Cancer Screening 04/26/2022 04/26/2021 Covid-19 Vaccine (4 - 2024-2 6 season) 2024 04/26/2021, 08/13/2020, 07/23/2020 Influenza Vaccine (#1) 2024 , 02/07/2022, 04/26/2021 Breast Cancer Screening-Mammogram 01/31/2026 01/31/2025, 01/30/2024, 09/13/2022, Additional history exists Procedures Procedure Name Priority Date/Time Associated Diagnosis Comments SCREENING MAMMOGRAM BILATERAL W KARLO Schedule Routine, Read Routine (OP Routine) 01/31/2025 3:52 PM CDT Screening mammogram, encounter for from Last 3 Months Results * Screening Mammogram Bilateral W Karlo (01/31/2025 3:52 PM CDT) Anatomical Region Laterality Modality Breast Bilateral Mammography Impressions 01/31/2025 5:25 PM CDT Bilateral No evidence of malignancy in either breast. OVERALL BI-RADS FINAL ASSESSMENT: 2 - Benign RECOMMENDATION: Recommend bilateral annual screening mammography. Narrative 01/31/2025 5:25 PM CDT EXAMINATION: Screening Mammogram Bilateral W Karlo: 01/31/2025 COMPARISON: Relevant prior studies available at the time of interpretation were reviewed, including the most recent mammogram on: 01/30/2024. TECHNIQUE: Mammography was performed with 2D and 3D digital breast tomosynthesis (DBT) images. CAD was utilized. BREAST PARENCHYMAL COMPOSITION: There are scattered areas of fibroglandular density. FINDINGS: There are benign calcifications in both breasts. There is a biopsy marker clip in the right breast. No suspicious mass, suspicious calcifications, or architectural distortion is seen in either breast. There has been no suspicious interval change. us Self Screening Mammogram IMG MAMMO PROCEDURES Fi nal Result from Last 3 Months [facility] [id number] [facility] [id number] Care Teams Staff Command And Control Officer Relationship Specialty Start Date End Date Dana Butler NP [address] [place] [address] PCP - General Nurse Practitioner 01/11/25 [place] [address] [facility] [address] Physician Inspector Handbag Frames Physician Inspector Handbag Frames 09/13/22
--- OUTSIDE RECORDS SUMMARY | 2025-04-18 16:11 | XMS_ITS | Encounter Summary ---
Author Organization [facility] Address [address] [place] [address] Care Team Providers Care Marketing Services Vice President Name Role Phone Emmy Mcnair Primary Care Provider + [phone] Adrianne Aragon NP Primary Care Provider + [phone] Encounter Details Date Type Department Care Team (Late st Contact Info) Description 09/18/2022 [employer] Message Enc [facility] Medical Group Family & Internal Medicine [facility] [address] [place] [address] [place] [address] [place] [address] Lung xray Social History Tobacco [...] CDT Gender Identity Female 06/04/2021 11:08 AM STOCK DIGGER Sexual Orientation Straight 06/04/2021 11 :08 AM STOCK DIGGER COVID-19 Exposure Response Date Recorded In the [...] documented as of this encounter Care Teams Marketing Services Vice President Relationship Specialty [place] [address] [place] [address] PCP - General PHYSICIAN BENCH ASSEMBLER ELECTRICAL 04/26/21 04/17/23 [place] [address] [address] [address] PCP - General Nurse Practitioner Family 04/18/2311/26 documented as of this encounter
--- OUTSIDE RECORDS SUMMARY | 2025-04-18 16:11 | XMS_ITS | Encounter Summary ---
Author Organization [facility] Address [address] [place] [address] Care Team Providers Care Vamp Cut Out Worker Name Role Phone Adrianne Aragon NP Primary Care Provider [phone] Encounter Details Date Type Department Care Team (Late st Contact Info) Description 07/16/2023 App[employer]able[employer] Message Enc [facility] Medical Group Family & Internal Medicine [facility] [address] [place] [phone] Emmy Mcnair [place] [phone] [place] [phone] [employer] Social History Tobacco Use Types Packs/Day [...] CDT Gender Identity Female 06/04/2021 11:08 AM INFORMATION TECHNOLOGY TECHNICIAN Sexual Orientation Straight 06/04/2021 11 :08 AM INFORMATION TECHNOLOGY TECHNICIAN documented as of this encounter Plan of Treatment Not on file documented as of this encounter Visit Diagnoses Not on filedocumented in this encounter Additional Health Concerns Assessment Noted Time PHQ-9 Depression Total Score: 0 09/03/19 23 9:25 AM CDT documented as of this encounter Care Teams Vamp Cut Out Worker Relationship Specialty [place] [address] [address] [place] [address] PCP - General Nurse Practitioner Family 04/18/2311/26 documented as of this encounter
--- OUTSIDE RECORDS SUMMARY | 2025-04-18 16:11 | XMS_ITS | Encounter Summary ---
Author Organization [facility] Address [address] [place] [address] Care Team Providers Care Handkerchief Sample Clerk Name Role Phone Emmy Mcnair Primary Care Provider + [phone] Adrianne Aragon NP Primary Care Provider + [phone] Encounter Details Date Type Department Care Team (Late st Contact Info) Description 06/02/2021 Loudrt Message Enc [facility] Medical Group Family & Internal Medicine [facility] [address] [place] [phone] Emmy Mcnair, [place] [address] [place] [address] Keto cream Social History Tobacco Use [...] CDT Gender Identity Female 06/04/2021 11:08 AM WOOD BARREL RECONDITIONER Sexual Orientation Straight 06/04/2021 11 :08 AM WOOD BARREL RECONDITIONER COVID-19 Exposure Response Date Recorded In the last 10 days, have yo u been in contact with someone who was confirmed or suspected to have Coronavirus/COVID-19? No / Unsure 06/04/2021 10:43 AM WOOD BARREL RECONDITIONER documented as of this encounter Plan of Treatment Not on file documented as of this encounter Visit Diagnoses Not on filedocumented in this encounter Additional Health Concerns Assessment Noted Time PHQ-9 Depression Total Score: 0 04/26/20 8:58 AM WOOD BARREL RECONDITIONER documented as of this encounter Care Teams Handkerchief Sample Clerk Relationship Specialty [place] [address] [place] [address] PCP - General PHYSICIAN CAMPUS COORDINATOR 04/26/21 04/17/23 [place] [address] [address] [address] PCP - General Nurse Practitioner Family 04/18/2311/26 documented as of this encounter
--- OUTSIDE RECORDS SUMMARY | 2025-04-18 16:11 | XMS_ITS | Encounter Summary ---
Author Organization [facility] Address [address] [place] [address] Care Team Providers Care Press Machine Operator Name Role Phone Emmy Mcnair Primary Care Provider + [phone] Adrianne Aragon NP Primary Care Provider + [phone] Encounter Details Date Type Department Care Team (Late st Contact Info) Description 07/18/2021 [employer] Message Enc [facility] Medical Group Family & Internal Medicine [facility] [address] [place] [phone] Emm[place] Mc[place]air [place] [phone] [place] [address] Lab orders; yeast rash Social History [...] CDT Gender Identity Female 06/04/2021 11:08 AM NUCLEAR PHYSICS PROFESSOR Sexual Orientation Straight 06/04/2021 11 :08 AM NUCLEAR PHYSICS PROFESSOR documented as of this encounter Plan of Treatment Not on file documented as of this encounter Visit Diagnoses Not on filedocumented in this encounter Additional Health Concerns Assessment Noted Time PHQ-9 Depression Total Score: 0 06/06/19 22 7:57 AM NUCLEAR PHYSICS PROFESSOR documented as of this encounter Care Teams Press Machine Operator Relationship Specialty [place] [address] [place] [address] PCP - General PHYSICIAN FRONT END SPECIALIST 04/26/21 04/17/23 [place] [address] [address] [place] [address] PCP - General Nurse Practitioner Family 04/18/2311/26 documented as of this encounter
--- OUTSIDE RECORDS SUMMARY | 2025-04-18 16:11 | XMS_ITS | Encounter Summary ---
Author Organization [facility] Address [facility] [place] [address] Care Team Providers Care Scrap Sawyer Name Role Phone Adrianne Aragon NP Primary Care Provider [phone] Encounter Details Date Type Department Care Team (Late st Contact Info) Description 04/25/2023 [employer] Message Enc [facility] Medical Group Family & Internal Medicine [facility] [address] [place] [phone] [place] [phone] [place] [address] [employer] [address] [place], [place] [phone] Tsh Social History Tobacco Use Types Packs/Day [...] CDT Gender Identity Female 06/04/2021 11:08 AM LINUX SYSTEMS ENGINEER Sexual Orientation Straight 06/04/2021 11 :08 AM LINUX SYSTEMS ENGINEER documented as of this encounter Plan of Treatment Not on file documented as of this encounter Visit Diagnoses Not on filedocumented in this encounter Additional Health Concerns Assessment Noted Time PHQ-9 Depression Total Score: 0 09/03/19 23 9:25 AM CDT documented as of this encounter Care Teams Scrap Sawyer Relationship Specialty [place] [address] [facility] [employer] [address] [place] [address] [place] [address] PCP - General Nurse Practitioner Family 04/18/2311/26 documented as of this encounter
--- OUTSIDE RECORDS SUMMARY | 2025-04-18 16:11 | XMS_ITS | Encounter Summary ---
Author Organization [facility] Address [address] [place] [address] Care Team Providers Care Bean Sorter Name Role Phone Emmy Mcnair Primary Care Provider + [phone] Adrianne Aragon NP Primary Care Provider + [phone] Encounter Details Date Type Department Care Team (Late st Contact Info) Description 02/22/2022 [employer] Message [facility] Medical Group Family & Internal Medicine [address] [phone] Piyush, [facility] Provider Due for routine follow up appt [...] CDT Gender Identity Female 06/04/2021 11:08 AM CLINICAL PSYCHOLOGIST Sexual Orientation Straight 06/04/2021 11 :08 AM CLINICAL PSYCHOLOGIST COVID-19 Exposure Response Date Recorded In the [...] Total Score: 0 06/06/19 22 7:57 AM CLINICAL PSYCHOLOGIST documented as of this encounter Care Teams Bean Sorter Relationship Specialty [place] [address] [place] [address] PCP - General PHYSICIAN DIRECTOR SECURITY MANAGEMENT 04/26/21 04/17/23 [place] [address] [address] [place] [address] PCP - General Nurse Practitioner Family 04/18/2311/26 documented as of this encounter
--- OUTSIDE RECORDS SUMMARY | 2025-04-18 16:11 | XMS_ITS | Encounter Summary ---
Author Organization [facility] Address [address] [place] [address] Care Team Providers Care Philanthropy Officer Name Role Phone Soha Henry MD Primary Care Provider [phone] Encounter Details Date Type Department Care Team (Late st Contact Info) Description 09/28/2024 Lab Requisition [facility] - DermPath Lab [address] [place] [address] Aguilar Colalzo MD [facility] DERMATOLOGY [address] [place] [phone] Neoplasm of uncertain behavior of skin Social History Tobacco Use Types Packs/Day Years Used Date Smoking Tobacco: Every Day Cigarettes Alcohol Use Standard Drinks/Week Comments Yes 0 (1 standard drink = 0.6 oz pur e alcohol) Comments Unknown Sex and Gender Information Value Date Recorded Sex Assigned at Not on file Legal Sex Female 7:00 PM PROFESSOR OF ART HISTORY Gender Identity Not on file Sexual Orientation Not on file documented as of this encounter Plan of Treatment Not on file documented as of this encounter Procedures Procedure Name Priority Date/Time Associated Diagnosis Comments DERMATOPATHOLOGY Routine 09/27/2024 12:0 0 AM CDT Neoplasm of uncertain behavior of skin documented in this encounter Results * DERMATOPATHOLOGY (09/27/2024 12:00 AM CDT) Case Report Dermatopathology Report Case: [id number] Authorizing Provider: Aguilar Collazo MD Collected: 09/27/2024 12:00 AM Ordering Location: [facility] - Received: 09/29/2024 02:01 PM DermPath Lab Pathologist: Taniya Manzano MD Specimen: Skin, mid forehead 3:18 PM CDT DERMATOPATHOLOGY LABORATORY Final Diagnosis Specimen A. SKIN, mid forehead: HYPERKERATOSIS, ACANTHOSIS, AND TELANGIECTASES, SUPERFICIAL PORTIONS OF (I78.1) (see microscopic description and comment) 3:18 PM [facility] DERMATOPATHOLOGY LABORATORY at 1518 CDT Clinical History BCC vs Cyst 3:18 PM [facility] DERMATOPATHOLOGY LABORATORY Gross Description Specimen A: Received is one formalin filled container labeled with the patient's name and designated mid forehead. The specimen consists of a shave biopsy measuring 8x6x1 mm. Jar 0. 3:18 PM [facility] DERMATOPATHOLOGY LABORATORY Microscopic Description Specimen A. SKIN, [...] dermal process cannot be excluded. 3:18 PM [facility] DERMATOPATHOLOGY LABORATORY Disclaimer An external and internal positive and negative controls are appropriate for the histochemical, immunohistochemical and immunofluorescence stain(s) in this case (if any), except where stated explicitly. The performance characteristics of the stain(s) cited in this report were developed and its performance characteristic determined by the Dermatopathology Laboratory at [facility], directed by Dr. Connor Pickard. These tests need not be, and therefore are not, approved by the [place] Food and Drug Administration. The tests are used for clinical purposes. Billing Codes Specimen Charges Stain Charges 44850 1 04679 48179 18109 50686 72759 1 1 1 1 1 06/10/202 5 3:18 PM CDT DERMATOPATHOLOGY LABORATORY Embedded Images 3:18 PM CDT DERMATOPATHOLOGY LABORATORY Pathology/Cytolog y TISSUE SPECIMEN FROM SKIN / Unknown 09/27/2024 09/29/2024 2:01 PM CDT us Aguilar Collazo MD LAB - PATHOLOGY/CYTOLOGY ADAME COLLEEN Final Result DERMATOPATHOLOGY LABORATORY [facility] - Department of Dermatology [facility] Medicine [address] [place] [address], [address] [phone] documented in this encounter Visit Diagnoses Diagnosis Neoplasm of uncertain behavior of skin documented in this encounter Care Teams Philanthropy Officer Relationship Specialty Start Date End Date Soha Henry MD [address] [place] [address] PCP - General 03/15/11 documented as of this encounter
--- OUTSIDE RECORDS SUMMARY | 2025-04-18 16:11 | XMS_ITS | Encounter Summary ---
Author Organization [facility] Address [address] [place] [address] Care Team Providers Care Telephone Information Supervisor Name Role Phone Emmy Mcnair Primary Care Provider + [phone] Adrianne Aragon NP Primary Care Provider + [phone] Encounter Details Date Type Department Care Team (Late st Contact Info) Description 02/04/2023 Databanq Message Enc [facility] Medical Group Family & Internal Medicine [facility] [address] [place] [phone] [place] [address] [place] [address] Visit Social History Tobacco Use [...] CDT Gender Identity Female 06/04/2021 11:08 AM WAREHOUSE ORDER SELECTOR Sexual Orientation Straight 06/04/2021 11 :08 AM WAREHOUSE ORDER SELECTOR documented as of this encounter Plan of Treatment Not on file documented as of this encounter Visit Diagnoses Not on filedocumented in this encounter Additional Health Concerns Assessment Noted Time PHQ-9 Depression Total Score: 0 09/03/19 23 9:25 AM CDT documented as of this encounter Care Teams Telephone Information Supervisor Relationship Specialty [place] [address] [place] [address] PCP - General PHYSICIAN RETIREMENT ADMINISTRATOR 04/26/21 04/17/23 [place] [address] [address] [place] [address] PCP - General Nurse Practitioner Family 04/18/2311/26 documented as of this encounter
--- OUTSIDE RECORDS SUMMARY | 2025-04-18 16:11 | XMS_ITS | Encounter Summary ---
Author Organization [facility] Address [address] [place] [address] Care Team Providers Care Vp Ad Sales West Name Role Phone Emmy Mcnair Primary Care Provider + [phone] Adrianne Aragon NP Primary Care Provider + [phone] Encounter Details Date Type Department Care Team (Late st Contact Info) Description 04/12/2023 PayClip Message Enc [facility] Medical Group Family & [facility] [address] [place] [phone] [place] [address] [place] [address] Hctz refill Social History Tobacco [...] CDT Gender Identity Female 06/04/2021 11:08 AM SENIOR SUSTAINABILITY CONSULTANT Sexual Orientation Straight 06/04/2021 11 :08 AM SENIOR SUSTAINABILITY CONSULTANT documented as of this encounter Plan of Treatment Not on file documented as of this encounter Visit Diagnoses Not on filedocumented in this encounter Additional Health Concerns Assessment Noted Time PHQ-9 Depression Total Score: 0 09/03/19 23 9:25 AM CDT documented as of this encounter Care Teams Vp Ad Sales West Relationship Specialty [place] [address] [place] [address] PCP - General PHYSICIAN METAL NEUTRALIZER 04/26/21 04/17/23 [place] [address] [address] [address] PCP - General Nurse Practitioner Family 04/18/2311/26 documented as of this encounter
--- OUTSIDE RECORDS SUMMARY | 2025-04-18 16:11 | XMS_ITS | Encounter Summary ---
Author Organization [facility] Address [address] [place] [address] Care Team Providers Care Aerospace Technician Name Role Phone Emmy Mcnair Primary Care Provider + [phone] Adrianne Aragon NP Primary Care Provider + [phone] Encounter Details Date Type Department Care Team (Late st Contact Info) Description 09/17/2022 [employer] Mechat[employer] Message Enc [facility] Medical Group Family & Internal Medicine [facility] [address] [place] [phone] [place] [address] [place] [address] [email or web address] Social History Tobacco Use [...] CDT Gender Identity Female 06/04/2021 11:08 AM STUDENT OFFICER Sexual Orientation Straight 06/04/2021 11 :08 AM STUDENT OFFICER COVID-19 Exposure Response Date Recorded In the [...] documented as of this encounter Care Teams Aerospace Technician Relationship Specialty [place] [address] [place] [address] PCP - General PHYSICIAN STEEP TENDER 04/26/21 04/17/23 [place] [address] [address] [place] [address] PCP - General Nurse Practitioner Family 04/18/2311/26 documented as of this encounter
--- OUTSIDE RECORDS SUMMARY | 2025-04-18 16:11 | XMS_ITS | Data Portability ---
Author Organization [facility] [facility] Fibroid and, [facility] Address [address] [place] [address] Care Team Providers Care Riveter Pneumatic Name Role Phone ADALI MORGAN Primary Care Provider [phone] Assessment Encounter Date Assessment Date Assessment LastModified [...] and Address Organization Details Recorded Time Hypothyroidism 15814517 Active 2023 Edel Iannchey null, [place] - [facility] and 13:23:54 Hemorrhoids 26755301 Active 2023 Edel Hinchey null, [place] - [facility] and 13:24:18 Problem Notes None recorded. Procedures Surgical History Date Name Laterality Status Provider Name and Address Organization Details Recorded Time 08/26/2021 completed Edel Iannchey [place] - [facility] Fib[facility] and 02/20/2024 13:23:25 [...] Updated DateTime 02/20/2024 157.48 cm 30.2 kg/m2 33081.74 g Edel Bolton [employer] [facility] [employer] [facility] and 02/20/2024 13:23:10 Social History Question Answer Notes LastModified by Organizat ion Details LastModified Time Tobacco Smoking Status Current Every Day Smoker Edel matson, [employer] [facility] and 02/20/2024 13:23:34 What Is The Highest Grade Or Level Of School You Have Completed Or The Highest Degree You Have Received? HE18236-3 Information not available 02/20/2024 What Was The [...] Diagnosis SNOMED-CT Code Diagnosis ICD10 Code Diagnosis IMO Codes Diagnosis Note 10918 Maribell Ochoa MD [address] [address] 02/20/2024 12:22:20 02/23/2024 09:25:33 Pre-surgery testing 427020292 Z01.89 Rectal pain 19543202 K62 .89 Rectal hemorrhage 964761 02 K62.5 Hemorrhoids 15584437 K64 .9 Health Concerns Section Related Observation LastModified by Organization Detai ls LastModified Time None Recorded Concern Status LastModified by Organization Details LastModified Time None Recorded Advance Directives Directive None Recorded Payers Insurance Date Sequence Insurance Name Policy Number Policy Dougherty Covered Member ID Dougherty Member ID Guarantor Name 02/20/2024 1 [employer] - OPEN ACCESS Stella Antunez [id number] OI Stella Antunez Notes Date Note Type Note Provider Name and Address Organization Details Recorded Time 02/20/2024 text/html OA Rectal BleedingReported by PatientHPIFor symptoms, patient reportsblood seen with wiping,anal itching, andmoderate anal pain: 08/05 to ut reportsnot related to bowel movement. For associated symptoms, patient reportscrampinganddiffi cult bowel movements. For severity, patient reportsmoderate. For duration, patient reportspresent for >6 months. For timing, patient reportsgradual. For modifying factors, patient reportssitz bath,nsaids,hemorrhoid cream,high fiber diet, andinitial improvement, but still persistent. For aggravating factors, patient reportsbowel movementandsitting.She has also completed hemorrhoidectomy and two hemorrhoid bands with continued symptoms. Her hemorrhoids has caused her stools to be thin. She recently started weight loss injectable (GLP) and endorses the use of senna. LUIS PONCE, PRODUCT/INDUSTRY CONSULTANT [address] [facility], [place] [address], [place], [address], [facility] St[facility] Fibroid and 02/21/2024 23:44:54 OBGyn Episode No OBEpisode recorded.
--- OUTSIDE RECORDS SUMMARY | 2025-04-18 16:11 | XMS_ITS | Encounter Summary ---
Author Organization [facility] Address [address] [place] [address] Care Team Providers Care Yard Specialist Name Role Phone Emmy Mcnair Primary Care Provider + [phone] Adrianne Aragon NP Primary Care Provider + [phone] Encounter Details Date Type Department Care Team (Late st Contact Info) Description 05/20/2022 [employer] Message Enc [facility] Medical Group Family & Internal Medicine [facility] [address] [place] [phone] Emmy Mcnair, APRIL [address] [place] [address] UTI Social History Tobacco Use Types [...] CDT Gender Identity Female 06/04/2021 11:08 AM CARE COORDINATOR Sexual Orientation Straight 06/04/2021 11 :08 AM CARE COORDINATOR documented as of this encounter Plan of Treatment Not on file documented as of this encounter Visit Diagnoses Not on filedocumented in this encounter Additional Health Concerns Assessment Noted Time PHQ-9 Depression Total Score: 0 06/06/19 22 7:57 AM CARE COORDINATOR documented as of this encounter Care Teams Yard Specialist Relationship Specialty [place] [address] [place] [address] PCP - General PHYSICIAN WELT BUTTER HAND 04/26/21 04/17/23 [place] [address] [address] [place] [address] PCP - General Nurse Practitioner Family 04/18/2311/26 documented as of this encounter
--- OUTSIDE RECORDS SUMMARY | 2025-04-18 16:11 | XMS_ITS | Encounter Summary ---
Author Organization [facility] Address [address] [place] [address] Care Team Providers Care Agricultural Research Director Name Role Phone Emmy Mcnair Primary Care Provider + [phone] Adrianne Aragon NP Primary Care Provider + [phone] Encounter Details Date Type Department Care Team (Late st Contact Info) Description 02/28/2022 Autism Home [employer] Message Enc [facility] Medical Group Family & Internal Medicine [facility] [address] [place] [phone] [place] [address] [place] [address] Prescription Social History Tobacco Use [...] CDT Gender Identity Female 06/04/2021 11:08 AM LAST REPAIRER HELPER Sexual Orientation Straight 06/04/2021 11 :08 AM LAST REPAIRER HELPER COVID-19 Exposure Response Date Recorded In the [...] Total Score: 0 06/06/19 22 7:57 AM LAST REPAIRER HELPER documented as of this encounter Care Teams Agricultural Research Director Relationship Specialty [place] [address] [place] [address] PCP - General PHYSICIAN GROUND LAYER 04/26/21 04/17/23 [place] [address] [address] [facility] [address] [place] [address] PCP - General Nurse Practitioner Family 04/18/2311/26 documented as of this encounter
--- OUTSIDE RECORDS SUMMARY | 2025-04-18 16:11 | XMS_ITS | Encounter Summary ---
Author Organization [facility] Address [address] [place] [address] Care Team Providers Care Lithograph Press Feeder Name Role Phone Emmy Mcnair Primary Care Provider + [phone] Adrianne Aragon NP Primary Care Provider + [phone] Encounter Details Date Type Department Care Team (Late st Contact Info) Description 12/14/2021 Oxlo Systemst Message Enc [facility] Medical Group Family & Internal Medicine [facility] [address] [place] [phone] [place] [address] [place] [address] Wegovy Social History Tobacco Use [...] CDT Gender Identity Female 06/04/2021 11:08 AM LOADING INSPECTOR Sexual Orientation Straight 06/04/2021 11 :08 AM LOADING INSPECTOR COVID-19 Exposure Response Date Recorded In the [...] Total Score: 0 06/06/19 22 7:57 AM LOADING INSPECTOR documented as of this encounter Care Teams Lithograph Press Feeder Relationship Specialty [place] [address] [place] [address] PCP - General PHYSICIAN FSR 04/26/21 04/17/23 [place] [address] [address] [place] [address] [place] [address] PCP - General Nurse Practitioner Family 04/18/2311/26 documented as of this encounter
--- OUTSIDE RECORDS SUMMARY | 2025-04-18 16:11 | XMS_ITS | Encounter Summary ---
Author Organization [facility] Address [address] [place] [address] Care Team Providers Care Power Plant Assistant Name Role Phone Emmy Mcnair Primary Care Provider + [phone] Adrianne Aragon NP Primary Care Provider + [phone] Encounter Details Date Type Department Care Team (Late st Contact Info) Description 02/13/2023 [employer] Message Enc [facility] Medical Group Family & Internal Medicine [facility] [address] [place] [phone] [place] [address] [place] [address] Rene Stanton Social History Tobacco Use Types Packs/Day Years Used Date Smoking Tobacco: Every Day Cigarettes 0.3 30 Smokeless Tobacco: Never Comments:Mixed feelings Alcohol Use Standard Drinks/Week Comments Yes 0 (1 standard drink = 0.6 oz pur e alcohol) Social olea PHQ-2 Answer Date Recorded Patient Health Questionnaire-2 Score 0 09/02/2022 Comments No Sex and Gender Information Value Date Recorded Sex Assigned at Not on file Legal Sex Female 8:26 PM CDT Gender Identity Female 06/04/2021 11:08 AM CLAIM ADMINISTRATOR Sexual Orientation Straight 06/04/2021 11 :08 AM CLAIM ADMINISTRATOR documented as of this encounter Plan of Treatment Not on file documented as of this encounter Visit Diagnoses Not on filedocumented in this encounter Additional Health Concerns Assessment Noted Time PHQ-9 Depression Total Score: 0 09/03/19 23 9:25 AM CDT documented as of this encounter Care Teams Power Plant Assistant Relationship Specialty [place] [address] [place] [address] PCP - General PHYSICIAN ENVIRONMENTAL EMERGENCIES ASSISTANT 04/26/21 04/17/23 [place] [address] [address] [place] [address] PCP - General Nurse Practitioner Family 04/18/2311/26 documented as of this encounter
--- OUTSIDE RECORDS SUMMARY | 2025-04-18 16:11 | XMS_ITS | Encounter Summary ---
Author Organization [facility] Address [address] [place] [address] Care Team Providers Care Drophammer Operator Name Role Phone Emmy Mcnair Primary Care Provider + [phone] Adrianne Aragon NP Primary Care Provider + [phone] Encounter Details Date Type Department Care Team (Late st Contact Info) Description 09/02/2022 SSEVt Message Enc [facility] Medical Group Family & Internal Medicine [facility] [address] [place] [phone] [place] [address] [place] [address] Help Social History Tobacco Use [...] CDT Gender Identity Female 06/04/2021 11:08 AM EMPLOYEE'S REPRESENTATIVE Sexual Orientation Straight 06/04/2021 11 :08 AM EMPLOYEE'S REPRESENTATIVE COVID-19 Exposure Response Date Recorded In the [...] documented as of this encounter Care Teams Drophammer Operator Relationship Specialty [place] [address] [place] [address] PCP - General PHYSICIAN ARCHIVIST 04/26/21 04/17/23 [place] [address] [address] [place] [address] PCP - General Nurse Practitioner Family 04/18/2311/26 documented as of this encounter
--- OUTSIDE RECORDS SUMMARY | 2025-04-18 16:11 | XMS_ITS | Encounter Summary ---
Author Organization [facility] Address [address] [place] [address] Care Team Providers Care Field Artillery Operations Man Name Role Phone Emmy Mcnair Primary Care Provider + [phone] Adrianne Aragon NP Primary Care Provider + [phone] Encounter Details Date Type Department Care Team (Late st Contact Info) Description 09/25/2022 Watt[employer] Message Enc [facility] Medical Group Family & Internal Medicine [facility] [address] [place] [phone] [place] [address] [place] [address] Huma Social History Tobacco Use [...] CDT Gender Identity Female 06/04/2021 11:08 AM CLOTH BOOKER Sexual Orientation Straight 06/04/2021 11 :08 AM CLOTH BOOKER COVID-19 Exposure Response Date Recorded In the [...] documented as of this encounter Care Teams Field Artillery Operations Man Relationship Specialty [place] [address] [place] [address] PCP - General PHYSICIAN SALES REPRESENTATIVE [employer]IES 04/26/21 04/17/23 [place] [address] [address] [address] PCP - General Nurse Practitioner Family 04/18/2311/26 documented as of this encounter
--- OUTSIDE RECORDS SUMMARY | 2025-04-18 16:11 | XMS_ITS | Encounter Summary ---
Author Organization [facility] Address [address] [place] [address] Care Team Providers Care Cupola Melter Helper Name Role Phone Emmy Mcnair Primary Care Provider + [phone] Adrianne Aragon NP Primary Care Provider + [phone] Encounter Details Date Type Department Care Team (Late st Contact Info) Description 05/06/2022 [employer] Message Enc [facility] Medical Group Family & Internal Medicine [facility] [address] [place] [phone] [place] [phone] [place] [address] Vicenta Social History Tobacco Use Types [...] CDT Gender Identity Female 06/04/2021 11:08 AM ACUTE CARE ASSISTANT Sexual Orientation Straight 06/04/2021 11 :08 AM ACUTE CARE ASSISTANT documented as of this encounter Progress Notes * APRIL Diana - 05/06/2022 8:57 AM CSTFrom: Stella Antunez To: Emmy Mcnair Sent: 05/06/2022 6:30 AM ACUTE CARE ASSISTANT Subject: Wegovy I was so excited to [...] How long will this extreme nausea last. E CARE ASSISTANT documented in this encounter Plan of Treatment Not on file documented as of this encounter Visit Diagnoses Diagnosis Nausea- Primary Nausea alone documented in this encounter Additional Health Concerns Assessment Noted Time PHQ-9 Depression Total Score: 0 06/06/19 7:57 AM ACUTE CARE ASSISTANT documented as of this encounter Care Teams Cupola Melter Helper Relationship Specialty [place] [address] [place] [address] PCP - General PHYSICIAN EXPENDITURE REQUISITION CLERK 04/26/21 04/17/23 [place] [address] [address] [facility] [address]. [place] [address] PCP - General Nurse Practitioner Family 04/18/2311/26 documented as of this encounter
--- OUTSIDE RECORDS SUMMARY | 2025-04-18 16:11 | XMS_ITS | Encounter Summary ---
Author Organization [facility] Address [address] [place] [address] Care Team Providers Care Insole Beveler Name Role Phone Emmy Mcnair Primary Care Provider + [phone] Adrianne Aragon NP Primary Care Provider + [phone] Encounter Details Date Type Department Care Team (Late st Contact Info) Description 06/01/2021 PerSay Message [facility] Family & Internal Medicine [address] [address] [facility], [facility] Provider medication use Social History Tobacco Use [...] CDT Gender Identity Female 06/04/2021 11:08 AM COMPONENT ASSEMBLER SUPERVISOR Sexual Orientation Straight 06/04/2021 11 :08 AM COMPONENT ASSEMBLER SUPERVISOR COVID-19 Exposure Response Date Recorded In the last 10 days, have yo u been in contact with someone who was confirmed or suspected to have Coronavirus/COVID-19? No / Unsure 06/04/2021 10:43 AM COMPONENT ASSEMBLER SUPERVISOR documented as of this encounter Plan of Treatment Not on file documented as of this encounter Visit Diagnoses Not on filedocumented in this encounter Additional Health Concerns Assessment Noted Time PHQ-9 Depression Total Score: 0 04/26/20 21 8:58 AM COMPONENT ASSEMBLER SUPERVISOR documented as of this encounter Care Teams Insole Beveler Relationship Specialty [place] [address] [place] [address] PCP - General PHYSICIAN STRATEGIC MARKETING SPECIALIST 04/26/21 04/17/23 [place] [address] [address] [place] [address] PCP - General Nurse Practitioner Family 04/18/2311/26 documented as of this encounter
--- OUTSIDE RECORDS SUMMARY | 2025-04-18 16:11 | XMS_ITS | Encounter Summary ---
Author Organization [facility] Address [address] [place] [address] Care Team Providers Care Housekeeper Cleaning Cooking Name Role Phone Emmy Mcnair Primary Care Provider + [phone] Adrianne Aragon NP Primary Care Provider + [phone] Encounter Details Date Type Department Care Team (Late st Contact Info) Description 03/26/2022 [email or web address] Message Enc [facility] Medical Group Family & Internal Medicine [facility] [id number] [place] [address] [place] [address] [place] [address] Sinus infection Social History Tobacco [...] CDT Gender Identity Female 06/04/2021 11:08 AM CRITICAL CARE UNIT NURSE Sexual Orientation Straight 06/04/2021 11 :08 AM CRITICAL CARE UNIT NURSE documented as of this encounter Plan of Treatment Not on file documented as of this encounter Visit Diagnoses Not on filedocumented in this encounter Additional Health Concerns Assessment Noted Time PHQ-9 Depression Total Score: 0 06/06/19 22 7:57 AM CRITICAL CARE UNIT NURSE documented as of this encounter Care Teams Housekeeper Cleaning Cooking Relationship Specialty [place] [address] [place] [address] PCP - General PHYSICIAN X RAY DEVELOPING MACHINE OPERATOR 04/26/21 04/17/23 [place] [address] [address] [place] [address] PCP - General Nurse Practitioner Family 04/18/2311/26 documented as of this encounter
--- OUTSIDE RECORDS SUMMARY | 2025-04-18 16:11 | XMS_ITS | Encounter Summary ---
Author Organization [facility] Address [address] [place] [address] Care Team Providers Care Metal Fabricator Name Role Phone Emmy Mcnair Primary Care Provider + [phone] Adrianne Aragon NP Primary Care Provider + [phone] Encounter Details Date Type Department Care Team (Late st Contact Info) Description 09/17/2022 Semblee_t Message Enc [facility] Medical Group Family & Internal Medicine [facility] [address] [place] [address] [place] [address] [place] [address] Rib Social History Tobacco Use [...] CDT Gender Identity Female 06/04/2021 11:08 AM WEIGHT AND BALANCE CONTROL AGENT Sexual Orientation Straight 06/04/2021 11 :08 AM WEIGHT AND BALANCE CONTROL AGENT COVID-19 Exposure Response Date Recorded In the [...] documented as of this encounter Care Teams Metal Fabricator Relationship Specialty [place] [address] [place] [address] PCP - General PHYSICIAN TRAY FILLER 04/26/21 04/17/23 [place] [address] [address] [address] PCP - General Nurse Practitioner Family 04/18/2311/26 documented as of this encounter
--- OUTSIDE RECORDS SUMMARY | 2025-04-18 16:11 | XMS_ITS | Clinical Summary ---
Author Organization [facility] [employer] Address [address] [place] [address] Care Team Providers Care Radiological Defense Officer Name Role Phone Soha Henry MD Primary Care Provider [phone] Source Comments [facility] [employer],non-owned Affiliates and Associated Physician Practices is amultiple site organization consisting of ambulatory clinics and hospital sitesin [place], [place], [place] and [place]. This disclosure is being madepursuant to the Care Everywhere program and may not contain all information available regarding this patient. Last updated 18.[facility] [employer] Family History Medical History Relation Name Comments [...] on file Legal Sex Female 7:00 PM FLOWER GRADER Gender Identity Not on file Sexual Orientation [...] 1985 ZOSTER VACCINE (1 of 2) 2014 DEPRESSION SCREENING 04/28/2024 COVID-19 VACCINE (1 - 2024-2 6 season) 2024 INFLUENZA VACCINE (#1) 2024 Respiratory Syncytial Virus (RSV) Vaccine Pt: [...] on patient's age to complete this topic Insurance Apptio Care Teams Radiological Defense Officer Relationship Specialty Start Date End Date Soha Henry MD [address] [place], [place] [id number] PCP - General 03/15/11
--- OUTSIDE RECORDS SUMMARY | 2025-04-18 16:11 | XMS_ITS | Encounter Summary ---
Author Organization [facility] Address [address] [place] [address] Care Team Providers Care Hospice Educator Name Role Phone Emmy Mcnair Primary Care Provider + [phone] Adrianne Aragon NP Primary Care Provider + [phone] Encounter Details Date Type Department Care Team (Late st Contact Info) Description 12/10/2021 mobiDEOS Message Enc [facility] Medical Group Family & Internal Medicine [facility] [id number] [place] [address] [place] [address] [place] [address] Phentermine Social History Tobacco Use Types [...] CDT Gender Identity Female 06/04/2021 11:08 AM AIRCRAFT CAPTAIN Sexual Orientation Straight 06/04/2021 11 :08 AM AIRCRAFT CAPTAIN COVID-19 Exposure Response Date Recorded In the [...] Total Score: 0 06/06/19 22 7:57 AM AIRCRAFT CAPTAIN documented as of this encounter Care Teams Hospice Educator Relationship Specialty [place] [address] [place] [address] PCP - General PHYSICIAN DISPATCH CLERK 04/26/21 04/17/23 [place] [address] [address] [place] [address]. [place] [address] PCP - General Nurse Practitioner Family 04/18/2311/26 documented as of this encounter
--- OUTSIDE RECORDS SUMMARY | 2025-04-18 16:11 | XMS_ITS | Encounter Summary ---
Author Organization [facility] Address [address] [place] [address] Care Team Providers Care Program Paraprofessional Name Role Phone Emmy Mcnair Primary Care Provider + [phone] Adrianne Aragon NP Primary Care Provider + [phone] Encounter Details Date Type Department Care Team (Late st Contact Info) Description 10/02/2022 CorMatrixt Message Enc [facility] Medical Group Family & Internal Medicine [facility] [address] [place] [address] [place] [address] [place] [address] Left Rib Social History Tobacco [...] CDT Gender Identity Female 06/04/2021 11:08 AM SALES REPRESENTATIVE JEWELRY Sexual Orientation Straight 06/04/2021 11 :08 AM SALES REPRESENTATIVE JEWELRY COVID-19 Exposure Response Date Recorded In the [...] documented as of this encounter Care Teams Program Paraprofessional Relationship Specialty [place] [address] [place] [address] PCP - General PHYSICIAN SOILS ENGINEER 04/26/21 04/17/23 [place] [address] [address] [address] PCP - General Nurse Practitioner Family 04/18/2311/26 documented as of this encounter
--- OUTSIDE RECORDS SUMMARY | 2025-04-18 16:11 | XMS_ITS | Encounter Summary ---
Author Organization [facility] Address [address] [place] [address] Care Team Providers Care Clinical Molecular Geneticist Name Role Phone Emmy Mcnair Primary Care Provider + [phone] Adrianne Aragon NP Primary Care Provider + [phone] Encounter Details Date Type Department Care Team (Late st Contact Info) Description 09/06/[address] Message Enc [facility] Medical Group Family & Internal Medicine [facility] [address] [place] [address] [place] [address] [place] [address] Cough/Meds Social History Tobacco Use [...] CDT Gender Identity Female 06/04/2021 11:08 AM URBAN PLANNING TEACHER Sexual Orientation Straight 06/04/2021 11 :08 AM URBAN PLANNING TEACHER COVID-19 Exposure Response Date Recorded In the [...] documented as of this encounter Care Teams Clinical Molecular Geneticist Relationship Specialty [place] [address] [place] [address] PCP - General PHYSICIAN ENGRAVER PICTURE 04/26/21 04/17/23 [place] [address] [address] [place] [address] PCP - General Nurse Practitioner Family 04/18/2311/26 documented as of this encounter
--- OUTSIDE RECORDS SUMMARY | 2025-04-18 16:11 | XMS_ITS | Encounter Summary ---
Author Organization [facility] Address [address] [place] [address] Care Team Providers Care Ring Spinner Name Role Phone Emmy Mcnair Primary Care Provider + [phone] Adrianne Aragon NP Primary Care Provider + [phone] Encounter Details Date Type Department Care Team (Late st Contact Info) Description 09/02/2022 Exos Message Enc [facility] Medical Group Family & Internal Medicine [facility] [address] [place] [address] [place] [address] [place] [address] One more thing Social History [...] CDT Gender Identity Female 06/04/2021 11:[address] JUDGE Sexual Orientation Straight 06/04/2021 11 :[address] JUDGE COVID-19 Exposure Response Date Recorded In the [...] documented as of this encounter Care Teams Ring Spinner Relationship Specialty [place] [address] [place] [address] PCP - General PHYSICIAN SURFACING MACHINE OPERATOR 04/26/21 04/17/23 [place] [address] [address] [place] [address] PCP - General Nurse Practitioner Family 04/18/2311/26 documented as of this encounter
--- OUTSIDE RECORDS SUMMARY | 2025-04-18 16:11 | XMS_ITS | Encounter Summary ---
Author Organization [facility] Address [address] [place] [address] Care Team Providers Care Director Of Women'S Services Name Role Phone Emmy Mcnair Primary Care Provider + [phone] Adrianne Aragon NP Primary Care Provider + [phone] Encounter Details Date Type Department Care Team (Late st Contact Info) Description 03/28/2022 Neurolink Message Enc [facility] Medical Group Family & Internal Medicine [facility] [address] [place] [address] Emmy Mcnair, APRIL [id number] [place] [address] Wheezing Social History Tobacco Use Types [...] CDT Gender Identity Female 06/04/2021 11:08 AM BACK ROLLER Sexual Orientation Straight 06/04/2021 11 :08 AM BACK ROLLER documented as of this encounter Plan of Treatment Not on file documented as of this encounter Visit Diagnoses Not on filedocumented in this encounter Additional Health Concerns Assessment Noted Time PHQ-9 Depression Total Score: 0 06/06/19 22 7:57 AM BACK ROLLER documented as of this encounter Care Teams Director Of Women'S Services Relationship Specialty [place] [address] [place] [address] PCP - General PHYSICIAN AUTOMOTIVE SHOP FOREMAN 04/26/21 04/17/23 [place] [address] [address] [place] [address] PCP - General Nurse Practitioner Family 04/18/2311/26 documented as of this encounter
--- OUTSIDE RECORDS SUMMARY | 2025-04-18 16:11 | XMS_ITS | Encounter Summary ---
Author Organization [facility] Address [address] [place] [address] Care Team Providers Care Fire Truck Driver Name Role Phone Adrianne Aragon NP Primary Care Provider [phone] Encounter Details Date Type Department Care Team (Late st Contact Info) Description 07/16/2023 MyChart Message Enc [facility] Medical Group Family & Internal Medicine [address] [address] Adrianne Aragon [place] [phone] [place] [address] [place] [id number] Ciproflaxin Social History Tobacco Use Types Packs/Day [...] CDT Gender Identity Female 06/04/2021 11:08 AM MED SURG NURSE Sexual Orientation Straight 06/04/2021 11 :08 AM MED SURG NURSE documented as of this encounter Progress Notes [...] documented as of this encounter Care Teams Fire Truck Driver Relationship Specialty [place] [address] [place] [address] PCP - General Nurse Practitioner Family 04/18/2311/26 documented as of this encounter
--- OUTSIDE RECORDS SUMMARY | 2025-04-18 16:11 | XMS_ITS | Encounter Summary ---
Author Organization [facility] Address [address] [place] [address] Care Team Providers Care Surveillance Sensor Officer Name Role Phone Emmy Mcnair Primary Care Provider + [phone] Adrianne Aragon NP Primary Care Provider + [phone] Encounter Details Date Type Department Care Team (Late st Contact Info) Description 09/27/2022 Ash Access Technologyt Message Enc [facility] Medical Group Family & Internal Medicine [facility] [address] [place] [address] [place] [address] [place] [address] Levothyroxine Social History Tobacco Use [...] CDT Gender Identity Female 06/04/2021 11:08 AM ENDS DOWN CHECKER Sexual Orientation Straight 06/04/2021 11 :08 AM ENDS DOWN CHECKER COVID-19 Exposure Response Date Recorded In the [...] documented as of this encounter Care Teams Surveillance Sensor Officer Relationship Specialty [place] [address] [place] [address] PCP - General PHYSICIAN RESEARCH QUALITY ASSURANCE ANALYST 04/26/21 04/17/23 [place] [address] [address] [address] PCP - General Nurse Practitioner Family 04/18/2311/26 documented as of this encounter
[2025-04-18 19:27] LABS: Thyroid Stimulating Hormone 1.990 uIU/mL (0.465-4.680)
== END 2025-04-18 14:21 | disposition home or self-care (01) ==
PROVIDERS: PCP Nurse Practitioner Adult Health; Visit Provider Nurse Practitioner Adult Health
DX: E03.9 Hypothyroidism, unspecified (principal)
CPT/HCPCS: 36415; 84443